=== PATIENT | female | born 1975 | race Two or more races ===

== ENCOUNTER 2016-09-20 23:43 | Emergency (ER) | payer SELFPAY ==
[2016-09-21 01:01] LABS: ALANINE AMINOTRANSFERASE 29 U/L (9-52); ALBUMIN 4.4 g/dL (3.5-5.0); ALKALINE PHOSPHATASE 123 U/L (38-126); ANION GAP 15 (5-19); ASPARTATE AMINO TRANSFERASE 16 U/L (14-36); BILIRUBIN,TOTAL 0.6 mg/dL (0.2-1.3); BLOOD UREA NITROGEN 14 mg/dL (7-20); CALCIUM 10.6 mg/dL (8.4-10.2); CARBON DIOXIDE 24 mmol/L (22-30); CHLORIDE 101 mmol/L (98-107); CREATININE RESULT 0.53 mg/dL (0.52-1.25); GLUCOSE 362 mg/dL (75-110); POTASSIUM 4.2 mmol/L (3.6-5.0); SODIUM 139.9 mmol/L (137-145); TOTAL PROTEIN 8.5 g/dL (6.3-8.2)
[2016-09-21 01:16] LABS: HEMATOCRIT 51.5 % (36.0-47.0); HEMOGLOBIN 17.7 g/dL (12.0-15.5); HGB HCT DIFFERENCE 1.6; MEAN CORPUSCULAR HEMOGLOBIN 29.6 pg (27.0-33.4); MEAN CORPUSCULAR HGB CONC 34.3 g/dL (32.0-36.0); MEAN CORPUSCULAR VOLUME 86 fl (80-97); RED BLOOD COUNT 5.97 10^6/uL (3.72-5.28); RED CELL DISTRIBUTION WIDTH 12.7 % (11.5-14.0); WHITE BLOOD COUNT 20.2 10^3/uL (4.0-10.5)
[2016-09-21] MEDS ORDERED: CLINDAMYCIN 600 MG/D5W RTU 50 ML IV ONE (01:24)
[2016-09-21] MEDS ORDERED: MORPHINE SULFATE 10 MG/ML INJ IV ONE ×2 (01:24→02:42)
[2016-09-21 01:30] LABS: BASOPHILS % (MANUAL) 0 % (0-2); EOSINOPHILS % (MANUAL) 0 % (0-6); LYMPHOCYTES % (MANUAL) 27 % (13-45); TOTAL CELLS COUNTED 100
[2016-09-21 01:32] LABS: RBC MORPHOLOGY COMMENT NORMO-CYTIC/CHROMIC
--- NOTE | 2016-09-21 02:14 | ER Document Report ---
ED Extremity Problem, Lower - General Chief Complaint: High Blood Sugar Stated Complaint: RIGHT LEG PAIN Time seen by provider: 02:14 Mode of Arrival: Ambulatory Information source: Patient TRAVEL OUTSIDE OF THE [place] IN LAST 30 DAYS: No - HPI Patient complains to provider of: Pain Location: Leg Occurred: Other - 4 days Where: Home Onset/Duration: Gradual Quality of pain: Achy Severity: Moderate Pain Level: 3 Recent injury: No Exacerbated by: Nothing Relieved by: Nothing Notes: Patient is a 40-year-old female who presents to the emergency room complaining of tender erythematous patch to the lateral portion of her right lower leg that' s been worsening over the past 4 days, she denies any injury, no history of similar symptoms previously, no fever, patient reports that she is a diabetic, has not been on her metformin for greater than one year, has not seen a doctor in quite some time as well, she is a smoker - Related Data Allergies/Adverse Reactions: No Known Allergies Allergy (Verified 09/21/16 00:02) Past Medical History - General Information source: Patient - Social History Smoking Status: Current Every Day Smoker Chew tobacco use (# tins/day): No Frequency of alcohol use: None Drug Abuse: None Family History: Reviewed & Not Pertinent Endocrine Medical History: Reports: Hx Diabetes Mellitus Type 2 Renal/ Medical History: Denies: Hx Peritoneal Dialysis - Immunizations Hx Diphtheria, Pertussis, Tetanus Vaccination: Yes Review of Systems - Review of Systems Constitutional: No symptoms reported EENT: No symptoms reported Cardiovascular: No symptoms reported Respiratory: No symptoms reported Gastrointestinal: No symptoms reported Genitourinary: No symptoms reported Female Genitourinary: No symptoms reported Musculoskeletal: No symptoms reported Skin: See HPI Hematologic/Lymphatic: No symptoms reported Neurological/Psychological: No symptoms reported -: Yes All other systems reviewed and negative Physical Exam - Vital signs Vitals: Temp Pulse Resp BP Pulse Ox 98.9 F 94 16 169/100 H 97 09/20/16 23:48 09/20/16 23:48 09/20/16 23:48 09/20/16 23:48 09/20/16 23:48 Interpretation: Normal - General General appearance: Appears well, Alert - HEENT Head: Normocephalic, Atraumatic Eyes: Normal Pupils: PERRL - Respiratory Respiratory status: No respiratory distress Chest status: Nontender Breath sounds: Normal Chest palpation: Normal - Cardiovascular Rhythm: Regular Heart sounds: Normal auscultation Murmur: No - Abdominal Inspection: Normal Distension: No distension Bowel sounds: Normal Tenderness: Nontender Organomegaly: No organomegaly - Back Back: Normal, Nontender - Extremities General upper extremity: Normal inspection, Nontender, Normal color, Normal ROM , Normal temperature General lower extremity: Normal ROM, Normal weight bearing. No: Huan's sign Calf: Nontender, Other - Patient has a 8 x 4 cm area of erythema with increased warmth and tenderness to the lateral portion of the right lower leg, distal sensation and motor is intact with 2+ DP pulses - Neurological Neuro grossly intact: Yes Cognition: Normal Orientation: AAOx4 [place] Coma Scale Eye Opening: Spontaneous [place] Coma Scale Verbal: Oriented [place] Coma Scale Motor: Obeys Commands [place] Coma Scale Total: 15 Speech: Normal Motor strength normal: LUE, RUE, LLE, RLE Sensory: Normal - Psychological Associated symptoms: Normal affect, Normal mood - Skin Skin Temperature: Warm Skin Moisture: Dry Skin Color: Normal Course - Re-evaluation Re-evalutation: 09/21/16 03:48 Physical exam findings consistent with cellulitis, patient is noted to have markedly leukocytosis, as well as an elevated blood sugar consistent with her history of diabetes, states that she's been on metformin in the past, but has not been for at least a year, patient was provided with antibiotics, pain medication and a prescription for metformin, advised to follow-up with a primary care provider or return to the emergency room if symptoms worsen or fail to improve over the next 2-3 days, patient acknowledges understanding and agreement with this plan - Vital Signs Vital signs: Temp Pulse Resp BP Pulse Ox 98.6 F 89 16 130/74 H 98 09/21/16 03:32 09/21/16 03:32 09/21/16 03:32 09/21/16 03:32 09/21/16 03:32 - Laboratory Result Diagrams: 09/21/16 00:33 09/21/16 00:33 Laboratory results interpreted by me: 09/21/16 09/21/16 09/21/16 00:23 00:33 00:33 WBC 20.2 H RBC 5.97 H Hgb 17.7 H Hct 51.5 H Abs Neuts (Manual) 13.3 H Abs Lymphs (Manual) 5.7 H Glucose 362 H POC Glucose 338 H Calcium 10.6 H Total Protein 8.5 H Discharge - Discharge Clinical Impression: Cellulitis of right lower extremity Diabetes Qualifiers: Diabetes mellitus type: type 2 Diabetes mellitus complication status: with skin complications Diabetes mellitus complication detail: with other skin complication Diabetes mellitus care home insulin use: without care home use Qualified Code(s): E11.628 - Type 2 diabetes mellitus with other skin complications Condition: Stable Disposition: HOME, SELF-CARE Instructions: Diabetes (OM), Control of Diabetes During Illness (OM), Cellulitis (OM) Additional Instructions: Follow up with your primary care provider in one to 2 days. Return to the emergency room immediately if symptoms worsen or any additional concerns. Prescriptions: Clindamycin HCl [Cleocin 150 mg Capsule] 450 mg PO Q6 10 Days Hydrocodone/Acetaminophen [Hydrocodon-Acetaminophen 5-325] 1 each PO Q6 #20 tablet Metformin HCl [Glucophage] 500 mg PO BID #60 tablet Forms: Return to Work
[2016-09-21] MEDS ORDERED: INSULIN REG, HUMAN 100 UNIT/ML 3 ML VIAL (PYX) SUBCUT ONE (02:42)
[2016-09-21] MEDS ORDERED: HYDROCODONE/ACETAMINOPHEN 5-325 MG 6 TAB/DSPK PO PRN (02:53)
[2016-09-21 03:32] VITALS: BP 130/74
== END 2016-09-21 03:38 | disposition home or self-care (01) ==
LOC: ER 23:43
DX: L03.115 Cellulitis of right lower limb (principal); E11.628 Type 2 diabetes mellitus with other skin complications; F17.200 Nicotine dependence, unspecified, uncomplicated
CPT/HCPCS: 96376; 99283; 96375; 96365; 36415; 82962; 85025; 80053; J2270; J1815

== ENCOUNTER 2016-09-22 21:55 | Inpatient (IN) | payer SELFPAY ==
[2016-09-23] MEDS ORDERED: NORMAL SALINE 1000 ML 1,000 ML IV ONE (00:04)
[2016-09-23] MEDS ORDERED: VANCOMYCIN HCL INJ 1000 MG VIAL IV ONE (00:04)
[2016-09-23] MEDS ORDERED: HYDROMORPHONE HCL INJ/PF 2 MG/ML AMPULE IV ONE ×2 (00:04→03:49)
[2016-09-23] MEDS ORDERED: CEFTRIAXONE INJ 1000 MG VIAL IV ONE (00:04)
--- NOTE | 2016-09-23 00:07 | ER Document Report ---
ED General - General Chief Complaint: Skin Problem Stated Complaint: POSSIBLE CELLULITIS Notes: Patient is a 40-year-old female presents with complaint of a virus in her right leg. She was here 2 days ago and placed on clindamycin. She was also placed on the metformin due to a history of diabetes. Today the redness has spread and the pain has increased in her leg. She has been taking medications as prescribed. Low-grade fevers at home. No vomiting. Patient has never had a problem with cellulitis in the past. TRAVEL OUTSIDE OF THE [place] IN LAST 30 DAYS: No - Related Data Allergies/Adverse Reactions: No Known Allergies Allergy (Verified 09/21/16 00:02) Past Medical History - Social History Smoking Status: Current Every Day Smoker Chew tobacco use (# tins/day): No Frequency of alcohol use: None Drug Abuse: None Family History: Reviewed & Not Pertinent Patient has suicidal ideation: No Patient has homicidal ideation: No Endocrine Medical History: Reports: Hx Diabetes Mellitus Type 2 Renal/ Medical History: Denies: Hx Peritoneal Dialysis - Immunizations Hx Diphtheria, Pertussis, Tetanus Vaccination: Yes Review of Systems - Review of Systems Notes: My Normal Review Basic REVIEW OF SYSTEMS: CONSTITUTIONAL : Denies fever, chills, or sweats. Denies recent illness. EENT: Denies eye, ear, throat, or mouth pain or symptoms. Denies nasal or sinus congestion. RESPIRATORY: Denies cough, cold, or chest congestion. Denies shortness of breath, difficulty breathing, or wheezing. GASTROINTESTINAL: Denies abdominal pain. Denies nausea, vomiting, or diarrhea. Denies constipation. Last BM: GENITOURINARY: Denies difficulty urinating, painful urination, burning, frequency, or blood in urine. MUSCULOSKELETAL: Denies neck or back pain or joint pain or swelling. SKIN: Cellulitis right lower extremity. NEUROLOGICAL: Denies altered mental status or loss of consciousness. Denies headache. Denies weakness or paralysis or loss of use of either side. Denies problems with gait or speech. Denies sensory or motor loss. ALL OTHER SYSTEMS REVIEWED AND NEGATIVE. Physical Exam - Vital signs Vitals: Temp Pulse Resp BP Pulse Ox 100.0 F 98 16 156/89 H 97 09/22/16 21:59 09/22/16 21:59 09/22/16 21:59 09/22/16 21:59 09/22/16 21:59 - Notes Notes: General Appearance: Well nourished, alert, cooperative, no acute distress, moderate obvious discomfort. Vitals: reviewed, See vital signs table. Head: no swelling or tenderness to the head Eyes: PERRL, EOMI, Conjuctiva clear Mouth: No decreasd moisture Lungs: No wheezing, No rales, No rhonci, No accessory muscle use, good air exchange bilaterally. Heart: Normal rate, Regular rythm, No murmur, no rub Extremities: strength 5/5 in all extremities, good pulses in all extremities, area cellulitis and redness over the lateral aspect of the right lower extremity. Area has extended beyond the demarcated margins were marked 2 days ago. There is no fluctuance. Area is tender to palpation. Skin: warm, dry, appropriate color, no rash Neuro: speech clear, oriented x 3, normal affect, responds appropriately to questions. Course - Vital Signs Vital signs: Temp Pulse Resp BP Pulse Ox 100.0 F 98 22 H 133/81 H 99 09/22/16 21:59 09/22/16 21:59 09/23/16 02:01 09/23/16 02:01 09/23/16 02:01 - Laboratory Result Diagrams: 09/23/16 00:43 09/23/16 00:43 Laboratory results interpreted by me: 09/23/16 09/23/16 00:43 00:43 WBC 18.5 H RBC 5.37 H Hgb 15.8 H Absolute Neutrophils 12.2 H Absolute Lymphocytes 4.9 H Creatinine 0.51 L Glucose 265 H - Transfer of Care Notes: 09/23/16 03:45 Due to patient's fever, leukocytosis, and worsening cellulitis despite outpatient therapy if felt appropriate to admit her for further treatment of her cellulitis. I've given her Vancomycin and Rocephin. I did speak with the hospitalist who agrees in that the patient. Discharge - Discharge Clinical Impression: Cellulitis of right lower extremity, Hyperglycemia Condition: Stable Disposition: ADMITTED OBSERVATION Admitting Provider: Hospitalist Unit Admitted: Telemetry
[2016-09-23 01:09] LABS: ABSOLUTE BASOPHILS # (AUTO) 0.1 10^3/uL (0.0-0.2); ABSOLUTE EOSINOPHILS # (AUTO) 0.3 10^3/uL (0.0-0.6); ABSOLUTE LYMPHOCYTES (AUTO) 4.9 10^3/uL (0.5-4.7); ABSOLUTE MONOCYTES (AUTO) 1.1 10^3/uL (0.1-1.4); ABSOLUTE NEUT (AUTO) 12.2 10^3/uL (1.7-8.2); BASOPHILS % (AUTO) 0.4 % (0-2); EOSINOPHILS % (AUTO) 1.5 % (0-6); HEMATOCRIT 46.2 % (36.0-47.0); HEMOGLOBIN 15.8 g/dL (12.0-15.5); HGB HCT DIFFERENCE 1.2; LYMPHOCYTES % (AUTO) 26.3 % (13-45); MEAN CORPUSCULAR HEMOGLOBIN 29.5 pg (27.0-33.4); MEAN CORPUSCULAR HGB CONC 34.2 g/dL (32.0-36.0); MEAN CORPUSCULAR VOLUME 86 fl (80-97); MONOCYTES % (AUTO) 5.8 % (3-13); RED BLOOD COUNT 5.37 10^6/uL (3.72-5.28); RED CELL DISTRIBUTION WIDTH 12.8 % (11.5-14.0); WHITE BLOOD COUNT 18.5 10^3/uL (4.0-10.5)
[2016-09-23 01:25] LABS: ANION GAP 16 (5-19); BLOOD UREA NITROGEN 14 mg/dL (7-20); CALCIUM 9.6 mg/dL (8.4-10.2); CARBON DIOXIDE 23 mmol/L (22-30); CHLORIDE 102 mmol/L (98-107); CREATININE RESULT 0.51 mg/dL (0.52-1.25); GLUCOSE 265 mg/dL (75-110)
[2016-09-23 01:43] LABS: POTASSIUM 4.2 mmol/L (3.6-5.0)
[2016-09-23] MEDS ORDERED: INSULIN REG, HUMAN 100 UNIT/ML 3 ML VIAL (PYX) SUBCUT ONE (01:53)
[2016-09-23] MEDS ORDERED: DEXTROSE 50%-WATER 25 GM/50 ML DISP.SYRIN IV PRN ×2 (08:03)
[2016-09-23] MEDS ORDERED: GLUCAGON,HUMAN RECOMB 1 MG INJ IM PRN (08:03)
[2016-09-23] MEDS ORDERED: DEXTROSE 40% GEL 15 GM TUBE PO PRN ×2 (08:03)
[2016-09-23] MEDS ORDERED: ACETAMINOPHEN 325 MG TABLET PO PRN ×2 (08:04→14:40)
[2016-09-23] MEDS ORDERED: OXYCODONE HCL IR 5 MG TABLET PO PRN (08:08)
[2016-09-23] MEDS ORDERED: PROMETHAZINE HCL INJ 25 MG/1 ML VIAL IV PRN (08:09)
[2016-09-23] MEDS ORDERED: VANCOMYCIN HCL 0 MG in DEXTROSE 5%-WATER 250 ML IV NR (08:15)
--- NOTE | 2016-09-23 09:24 | PDOC H&P ---
History of Present Illness Admission Date/PCP: 09/23/16 04:10 PCP None Patient complains of: rt leg infection History of Present Illness: NISHA SWAIN is a 40 year old female, with underlying type II diabetes mellitus, recently started on metformin for same, and mild chronic constipation, who presents to the emergency room for the second time in 48-72 hours for evaluation of above complaint. 4-5 days ago, she noted a small red bump on the lateral aspect of her right calf. This has gradually increased in size with associated burning cramping discomfort, which worsens with ambulation or any contact with the area of involvement. Was seen in the emergency room 2 days ago and placed on clindamycin; also started on metformin at that time due to history of diabetes. Despite taking the clindamycin as prescribed, however, the area of redness has increased, along with the pain. Subjective low-grade fever at home. No vomiting. No prior such episodes. Denies any trauma to the site. No history of MRSA. Patient has been discussed with emergency room physician who evaluated the patient. . Laboratory results are listed in [facility] [facility] and are reviewed. Social history/personal habits: . No children. 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 Half-pack of cigarettes per day. No alcohol or illicit drug use. Allergies/adverse reactions NKDA. Home medications are reviewed by discussion with patient and are to be reconciled by pharmacy picking technician in [employer] [employer] Home medications initially autopopulated into [facility] may not accurately reflect patient's true medications, dosages, and/or frequencies. REVIEW OF SYSTEMS: Constitutional: See history and present illness. Eyes: No current vision complaints. ENT: No swallowing problems or complaints. No hearing problems or complaints. Pulmonary: No current complaints. Cardiovascular: No current complaints, including chest pain. Gastrointestinal: No current complaints, including nausea or vomiting. Skin: See history and present illness. Hematologic: No unusual easy bruising or bleeding. Neurologic: No current complaints, including numbness or tingling. Musculoskeletal: No current complaints, including painful joints. Psychiatric: No current complaints, including anxiety or depression. Endocrine: No current complaints, including polyuria. Genitourinary: No current complaints, including dysuria. PHYSICAL EXAMINATION: 5 feet 4 inches tall. 62.6 kg. BMI 23.7 kg/m. Temperature 100.0 earlier; skin feels normothermic at present. Blood pressure 116/80. Pulse 78 and regular. 97% saturation on room air. Respirations are 12 and unlabored. Thin otherwise well-developed female, who appears approximately her stated age. Pleasant awake alert and cooperative. Appears not to feel very well, primarily due to pain in her right calf region. Mildly anxious, but without agitation. is present at her side; patient approves. Female emergency room nurse Barron is present. Skin is warm and dry. No grossly obvious evidence of rash in areas of skin examined. No subcutaneous nodules palpated. Examination of the lateral aspect of her right calf reveals an area of inflammation, warmth, and tenderness involving the great majority of the lateral aspect of the calf. No crepitus fluctuance or expressible discharge. No specific skin entrance site. ENT: Hearing grossly normal to normal conversation. Tongue midline on protrusion pink and slightly moist. Eyes: No scleral icterus. Pupils equal and reactive to light at 4 mm. [place] conjunctivae. Neck is supple and nontender to gentle active range of motion and palpation. Midline trachea. No palpable thyroid nodule mass enlargement or tenderness. Lymphatic: No palpable cervical or clavicular nodes. Neck and lymphatic exams limited by patient body habitus. Psychiatric: Reasonable insight into acute and chronic medical issues. Oriented to time location and why here. Lungs: Auscultation reveals clear and equal breath sounds bilaterally. No use of accessory respiratory muscles. Cardiovascular: Heart regular rate and rhythm, without gallop murmur or rub. No carotid or abdominal aortic bruits. No ankle or pedal edema. palpable dorsalis pedis pulses. Abdomen: soft, , slightly distended nontender with positive bowel sounds. Unable to adequately evaluate abdomen for masses or organomegaly due to distention. Extremities: Feet are warm and dry. No left calf tenderness to compression. No grossly obvious visual evidence of left calf swelling; very mild soft tissue swelling in the area of inflammation of the right calf.. Gentle manipulation of left lower extremity fails to reveal any obvious evidence of injury or instability to knee hip or ankle. Not attempted on the right due to her discomfort. Neurologic: Moves upper extremities grossly normally. Patellar reflexes absent. Absent Babinski. Light touch is intact at feet. Dorsiflexion and plantarflexion of feet 5 / 5 and symmetric. Past Medical History Cardiac Medical History: Denies: Congestive Heart Failure, DVT, Myocardial Infarction, Hyperlipidema, Hypertension, Pulmonary Embolism Pulmonary Medical History: Denies: Asthma, Chronic Obstructive Pulmonary Disease (COPD), Sleep Apnea EENT Medical History: Denies: Eyes, Ears, Throat Neurological Medical History: Denies: Hemorrhagic CVA, Ischemic CVA, Seizures Endocrine Medical History: Reports: Diabetes Mellitus Type 2 Denies: Hyperthyroidism, Hypothyroidism Renal/ Medical History: Reports: None GI Medical History: Reports: Other - Mild chronic constipation Denies: Cirrhosis, Hepatitis, Peptic Ulcer Disease Musculoskeltal Medical History: Reports: None Skin Medical History: Reports: None Psychiatric Medical History: Reports: Tobacco Dependency Denies: Alcohol Dependency, Depression, General Anxiety Disorder, Substance Abuse Hematology: Reports: None Infectious Medical History: Denies: Clostridium Difficile, Hepatitis B, Hepatitis C, Methicillin- Resistant Staph Aureus Past Surgical History Past Surgical History: Reports: Other - Excision of benign cervical polyp Social History Information Source: Patient, Emergency Med Personnel, [facility] Records Lives with: Spouse/Significant other Smoking Status: Current Every Day Smoker Frequency of Alcohol Use: None Drugs: None - Advance Directive Resuscitation Status: Full Code Surrogate healthcare decision maker:: Mother Family History Family History: Reviewed & Not Pertinent, DM Parental Family History Reviewed: Yes Children Family History Reviewed: NA Sibling(s) Family History Reviewed.: Yes Medication/Allergy Home Medications: RX: Metformin HCl [Glucophage] 500 mg PO BID #60 tablet 09/21/16 RX: Clindamycin HCl 300 mg PO Q8H #21 capsule 09/25/16 Oxycodone HCl/Acetaminophen [Percocet 5-325 mg Tablet] 1 tab PO Q6HP PRN #10 tablet 09/29/16 Rivaroxaban [Xarelto] 15 mg PO BID 21 Days 09/29/16 Allergies/Adverse Reactions: No Known Allergies Allergy (Verified 09/29/16 13:59) Physical Exam Vital Signs: Temp Pulse Resp BP Pulse Ox 100.0 F 98 17 130/86 H 97 09/22/16 21:59 09/22/16 21:59 09/23/16 07:01 09/23/16 07:01 09/23/16 07:01 Intake & Output 09/22/16 09/23/16 09/24/16 00:59 00:59 00:59 Intake Total 1350 Balance 1350 Assessment & Plan - Diagnosis (1) Tobacco dependency Is this a current diagnosis for this admission?: YesPlan: . When necessary Nicotine patch. (2) DVT prophylaxis Is this a current diagnosis for this admission?: YesPlan: SCD, left lower extremity only. Subcutaneous Lovenox. (3) Cellulitis of right lower extremity Is this a current diagnosis for this admission?: YesPlan: Intravenous vancomycin and Ancef. Pharmacy to assist with vancomycin dosing. Bed rest other than meals and bathroom. Bed in 20 Trendelenburg. I have strongly encouraged patient not to get out of bed without notifying staff , to avoid a fall with injury. Impression and plans were discussed with patient, and , both of whom concur. Time spent in evaluation and management of patient: 58 minutes. (4) Diabetes mellitus type 2 in nonobese Is this a current diagnosis for this admission?: YesPlan: Diabetic cardiac diet. Accu-Cheks with appropriate sliding scale coverage.Resume home medications as appropriate once these have been determined and reviewed. - Inpatient Certification Based on my medical assessment, after consideration of the patient's comorbidities, presenting symptoms, or acuity I expect that the services needed warrant INPATIENT care.: Yes I certify that my determination is in accordance with my understanding of Medicare's requirements for reasonable and necessary INPATIENT services [42 CFR 412.3e].: Yes Medical Necessity: Failure to Improve With Outpatient Therapy, Need Close Monitoring Due to Risk of Patient Decompensation, Need for IV Antibiotics, Risk of Complication if Not Cared For in Hospital Post Hospital Care: D/C or Transfer Summary
[2016-09-23] MEDS: INSULIN LISPRO 100 UNIT/ML 3 ML VIAL SUBCUT PRN ×4 (09:40→21:34)
[2016-09-23] MEDS ORDERED: CEFAZOLIN 1 GM/D5W RTU 1 GM/50 ML RTUPB IV SCH (10:00)
[2016-09-23] MEDS: NICOTINE 14 MG/24 HR PATCH.TD24 TD PRN (10:15)
[2016-09-23] MEDS ORDERED: TRAMADOL HCL 50 MG TABLET PO PRN (14:40)
[2016-09-23] MEDS ORDERED: KETOROLAC TROMETHAMINE INJ/PF 30 MG/1 ML SDV IV ONE (15:00)
[2016-09-23] MEDS ORDERED: CLINDAMYCIN 900 MG/D5W RTU 50 ML IV ONE (15:30)
--- NOTE | 2016-09-23 17:37 | PDOC PROGRESS REPORT ---
Subjective Progress Note for:: 09/23/16 Subjective:: The patient was seen earlier today on rounds. The patient admits to ongoing calf pain. The patient is tearful at times stating the pain is excruciating. The patient was noted to be texting during the interview. The patient denies any nausea, vomiting, diarrhea, shortness of breath, dizziness, chest pain, heart palpitations, fevers, or chills. The patient has remained afebrile. Blood pressures have been in a good range. When prompted the patient voices no other concerns at this time. Review of systems: The rest of the review of systems is negative. Physical Exam Vital Signs: Temp Pulse Resp BP Pulse Ox 98 F 75 20 169/94 H 100 09/23/16 14:20 09/23/16 14:20 09/23/16 14:20 09/23/16 14:20 09/23/16 14:20 Intake & Output 09/21/16 09/22/16 09/23/16 23:59 23:59 23:59 Intake Total 50 Balance 50 Weight 64.5 kg General appearance: PRESENT: no acute distress, well-developed, well-nourished Head exam: PRESENT: atraumatic, normocephalic Eye exam: PRESENT: conjunctiva pink, EOMI, PERRLA. ABSENT: scleral icterus Ear exam: PRESENT: normal external ear exam Mouth exam: PRESENT: moist, tongue midline Neck exam: ABSENT: carotid bruit, JVD, lymphadenopathy, thyromegaly Respiratory exam: PRESENT: clear to auscultation makenzie. ABSENT: rales, rhonchi, wheezes Cardiovascular exam: PRESENT: RRR. ABSENT: diastolic murmur, rubs, systolic murmur Pulses: PRESENT: normal dorsalis pedis pul Vascular exam: PRESENT: normal capillary refill GI/Abdominal exam: PRESENT: normal bowel sounds, soft. ABSENT: distended, guarding, mass, organolmegaly, rebound, tenderness Rectal exam: PRESENT: deferred Extremities exam: PRESENT: calf tenderness - Redness and cellulitis appears to have receded from previous markings.. ABSENT: clubbing, pedal edema Neurological exam: PRESENT: alert, awake, oriented to person, oriented to place , oriented to time, oriented to situation, CN II-XII grossly intact. ABSENT: motor sensory deficit Psychiatric exam: PRESENT: appropriate affect, normal mood. ABSENT: homicidal ideation, suicidal ideation Skin exam: PRESENT: dry, intact, warm. ABSENT: cyanosis, rash Results Laboratory Results: Labs- Last Values WBC 18.5 10^3/uL (4.0-10.5) H 09/23/16 00:43 RBC 5.37 10^6/uL (3.72-5.28) H 09/23/16 00:43 Hgb 15.8 g/dL (12.0-15.5) H 09/23/16 00:43 Hct 46.2 % (36.0-47.0) 09/23/16 00:43 MCV 86 fl (80-97) 09/23/16 00:43 MCH 29.5 pg (27.0-33.4) 09/23/16 00:43 MCHC 34.2 g/dL (32.0-36.0) 09/23/16 00:43 RDW 12.8 % (11.5-14.0) 09/23/16 00:43 Plt Count 300 10^3/uL (150-450) 09/23/16 00:43 Seg Neutrophils % 66.0 % (42-78) 09/23/16 00:43 Lymphocytes % 26.3 % (13-45) 09/23/16 00:43 Monocytes % 5.8 % (3-13) 09/23/16 00:43 Eosinophils % 1.5 % (0-6) 09/23/16 00:43 Basophils % 0.4 % (0-2) 09/23/16 00:43 Absolute Neutrophils 12.2 10^3/uL (1.7-8.2) H 09/23/16 00:43 Absolute Lymphocytes 4.9 10^3/uL (0.5-4.7) H 09/23/16 00:43 Absolute Monocytes 1.1 10^3/uL (0.1-1.4) 09/23/16 00:43 Absolute Eosinophils 0.3 10^3/uL (0.0-0.6) 09/23/16 00:43 Absolute Basophils 0.1 10^3/uL (0.0-0.2) 09/23/16 00:43 Sodium 141.0 mmol/L (137-145) 09/23/16 00:43 Potassium 4.2 mmol/L (3.6-5.0) 09/23/16 00:43 Chloride 102 mmol/L (98-107) 09/23/16 00:43 Carbon Dioxide 23 mmol/L (22-30) 09/23/16 00:43 Anion Gap 16 (5-19) 09/23/16 00:43 BUN 14 mg/dL (7-20) 09/23/16 00:43 Creatinine 0.51 mg/dL (0.52-1.25) L 09/23/16 00:43 Est GFR ( Amer) > 60 (>60) 09/23/16 00:43 Est GFR (Non-Af Amer) > 60 (>60) 09/23/16 00:43 Glucose 265 mg/dL (75-110) H 09/23/16 00:43 POC Glucose 180 mg/dL (70-110) H 09/23/16 16:33 Calcium 9.6 mg/dL (8.4-10.2) 09/23/16 00:43 Serum HCG, Qual NEGATIVE (NEGATIVE) 09/23/16 00:43 Assessment & Plan - Diagnosis (1) Cellulitis of right lower extremity Is this a current diagnosis for this admission?: YesPlan: Will transition antibiotic coverage to clindamycin will add probiotic and follow. The patient's creatinine is in a normal range will scheduled Toradol for now to aid with inflammation. (2) Diabetes mellitus type 2 in nonobese Is this a current diagnosis for this admission?: YesPlan: My home meds as well as signs go coverage (3) Tobacco dependency Is this a current diagnosis for this admission?: YesPlan: Spent 3 minutes discussing smoking cessation education. The patient declines any pharmacological intervention at this time however will add a PRN nicotine patch. (4) DVT prophylaxis Is this a current diagnosis for this admission?: Yes - Time Time Spent with patient: 35 or more minutes Medications reviewed and adjusted accordingly: Yes Anticipated discharge: Home Within: within 24 hours, within 48 hours Disposition: The patient is a full code. Pending patient's symptomatology and diagnostic findings will reevaluate in the a.m.
[2016-09-23] MEDS: METFORMIN HCL 500 MG TABLET PO SCH (17:55)
[2016-09-23] MEDS: LACTOBACILLUS ACIDOPHILUS 250 MG TAB PO SCH (17:55)
[2016-09-23] MEDS: KETOROLAC TROMETHAMINE INJ/PF 30 MG/1 ML SDV IV SCH (21:31)
[2016-09-23] MEDS: CLINDAMYCIN 900 MG/D5W RTU 50 ML IV SCH (21:31)
[2016-09-24] MEDS: KETOROLAC TROMETHAMINE INJ/PF 30 MG/1 ML SDV IV SCH ×4 (03:58→21:25)
[2016-09-24] MEDS: CLINDAMYCIN 900 MG/D5W RTU 50 ML IV SCH ×3 (06:38→21:25)
[2016-09-24 06:51] LABS: MEAN CORPUSCULAR VOLUME 85 fl (80-97)
[2016-09-24 07:00] LABS: ABSOLUTE BASOPHILS # (AUTO) 0.1 10^3/uL (0.0-0.2); ABSOLUTE EOSINOPHILS # (AUTO) 0.2 10^3/uL (0.0-0.6); ABSOLUTE MONOCYTES (AUTO) 0.9 10^3/uL (0.1-1.4); BASOPHILS % (AUTO) 0.7 % (0-2); EOSINOPHILS % (AUTO) 1.2 % (0-6); HEMATOCRIT 39.9 % (36.0-47.0); HGB HCT DIFFERENCE 0.3; LYMPHOCYTES % (AUTO) 26.3 % (13-45); MEAN CORPUSCULAR HEMOGLOBIN 28.7 pg (27.0-33.4); MEAN CORPUSCULAR HGB CONC 33.7 g/dL (32.0-36.0); MONOCYTES % (AUTO) 6.2 % (3-13); RED BLOOD COUNT 4.69 10^6/uL (3.72-5.28); RED CELL DISTRIBUTION WIDTH 12.5 % (11.5-14.0); SEGMENTED NEUTROPHILS % (AUTO) 65.6 % (42-78); WHITE BLOOD COUNT 15.3 10^3/uL (4.0-10.5)
[2016-09-24 07:05] LABS: HEMOGLOBIN 13.4 g/dL (12.0-15.5)
[2016-09-24] MEDS: ENOXAPARIN SODIUM INJ 40 MG/0.4 ML DISP.SYRIN SUBCUT SCH (08:00)
[2016-09-24] MEDS: METFORMIN HCL 500 MG TABLET PO SCH ×2 (09:52→17:51)
[2016-09-24] MEDS: LACTOBACILLUS ACIDOPHILUS 250 MG TAB PO SCH ×2 (09:52→17:51)
[2016-09-24] MEDS: INSULIN LISPRO 100 UNIT/ML 3 ML VIAL SUBCUT PRN (11:54)
[2016-09-24] MEDS: NICOTINE 14 MG/24 HR PATCH.TD24 TD PRN (11:58)
--- NOTE | 2016-09-24 13:46 | PDOC PROGRESS REPORT ---
Subjective Progress Note for:: 09/24/16 Subjective:: The patient was seen earlier today on rounds. The patient admits to ongoing calf pain. The patient is tearful at times but it overall is much improved. The patient denies any nausea, vomiting, diarrhea, shortness of breath, dizziness, chest pain, heart palpitations, fevers, or chills. The patient has remained afebrile. Blood pressures have been in a good range. When prompted the patient voices no other concerns at this time. Review of systems: The rest of the review of systems is negative. Physical Exam Vital Signs: Temp Pulse Resp BP Pulse Ox 98.8 F 76 16 128/85 H 98 09/24/16 12:49 09/24/16 12:49 09/24/16 12:49 09/24/16 12:49 09/24/16 12:49 Intake & Output 09/22/16 09/23/16 09/24/16 23:59 23:59 23:59 Intake Total 130 160 Balance 130 160 Weight 64.5 kg General appearance: PRESENT: no acute distress, well-developed, well-nourished Head exam: PRESENT: atraumatic, normocephalic Eye exam: PRESENT: conjunctiva pink, EOMI, PERRLA. ABSENT: scleral icterus Ear exam: PRESENT: normal external ear exam Mouth exam: PRESENT: moist, tongue midline Neck exam: ABSENT: carotid bruit, JVD, lymphadenopathy, thyromegaly Respiratory exam: PRESENT: clear to auscultation makenzie. ABSENT: rales, rhonchi, wheezes Cardiovascular exam: PRESENT: RRR. ABSENT: diastolic murmur, rubs, systolic murmur Pulses: PRESENT: normal dorsalis pedis pul Vascular exam: PRESENT: normal capillary refill GI/Abdominal exam: PRESENT: normal bowel sounds, soft. ABSENT: distended, guarding, mass, organolmegaly, rebound, tenderness Rectal exam: PRESENT: deferred Extremities exam: PRESENT: calf tenderness - Redness and cellulitis appears to have receded from previous markings and from yesterday. ABSENT: clubbing, pedal edema Neurological exam: PRESENT: alert, awake, oriented to person, oriented to place , oriented to time, oriented to situation, CN II-XII grossly intact. ABSENT: motor sensory deficit Psychiatric exam: PRESENT: appropriate affect, normal mood. ABSENT: homicidal ideation, suicidal ideation Skin exam: PRESENT: dry, intact, warm. ABSENT: cyanosis, rash Results Laboratory Results: 09/24/16 06:07 09/24/16 09/24/16 04:17 06:07 WBC Cancelled 15.3 H RBC Cancelled 4.69 Hgb Cancelled 13.4 D Hct Cancelled 39.9 MCV Cancelled 85 MCH Cancelled 28.7 MCHC Cancelled 33.7 RDW Cancelled 12.5 Plt Count Cancelled 265 Seg Neutrophils % Cancelled 65.6 Lymphocytes % Cancelled 26.3 Monocytes % Cancelled 6.2 Eosinophils % Cancelled 1.2 Basophils % Cancelled 0.7 Absolute Neutrophils Cancelled 10.0 H Absolute Lymphocytes Cancelled 4.0 Absolute Monocytes Cancelled 0.9 Absolute Eosinophils Cancelled 0.2 Absolute Basophils Cancelled 0.1 Assessment & Plan - Diagnosis (1) Cellulitis of right lower extremity Is this a current diagnosis for this admission?: YesPlan: Will continue antibiotic coverage to clindamycin will add probiotic and follow. The patient's creatinine is in a normal range continue scheduled Toradol for now to aid with inflammation. (2) Diabetes mellitus type 2 in nonobese Is this a current diagnosis for this admission?: YesPlan: Home medications and sliding scale coverage (3) Tobacco dependency Is this a current diagnosis for this admission?: YesPlan: PRN nicotine patch. (4) DVT prophylaxis Is this a current diagnosis for this admission?: Yes - Time Time Spent with patient: 25-34 minutes Medications reviewed and adjusted accordingly: Yes Anticipated discharge: Home Within: within 24 hours
[2016-09-25] MEDS: KETOROLAC TROMETHAMINE INJ/PF 30 MG/1 ML SDV IV SCH ×2 (02:18→08:07)
[2016-09-25] MEDS: CLINDAMYCIN 900 MG/D5W RTU 50 ML IV SCH ×2 (05:40→13:37)
[2016-09-25] MEDS: INSULIN LISPRO 100 UNIT/ML 3 ML VIAL SUBCUT PRN ×2 (05:59→13:34)
[2016-09-25] MEDS: ENOXAPARIN SODIUM INJ 40 MG/0.4 ML DISP.SYRIN SUBCUT SCH (07:56)
[2016-09-25] MEDS: LACTOBACILLUS ACIDOPHILUS 250 MG TAB PO SCH (09:34)
[2016-09-25] MEDS: METFORMIN HCL 500 MG TABLET PO SCH (09:34)
[2016-09-25 12:09] VITALS: BP 140/85
--- NOTE | 2016-09-25 17:18 | PDOC DISCHARGE SUMMARY ---
General - Admit/Disc Date/PCP Admission Date/Primary Care Provider: 09/23/16 08:04 [facility] Discharge Date: 09/25/16 - Discharge Diagnosis (1) Cellulitis of right lower extremity Is this a current diagnosis for this admission?: Yes (2) Diabetes mellitus type 2 in nonobese Is this a current diagnosis for this admission?: Yes (3) Tobacco dependency Is this a current diagnosis for this admission?: Yes (4) DVT prophylaxis Is this a current diagnosis for this admission?: Yes - Additional Information Resuscitation Status: Full Code Discharge Diet: As Tolerated, Regular Discharge Activity: Balance Activity w/Rest, Keep Legs Elevated, Slowly Increase Activity Home Medications: Metformin HCl [Glucophage] 500 mg PO BID #60 tablet 09/21/16 Clindamycin HCl 300 mg PO Q8H #21 capsule 09/25/16 History of Present Illness Patient complains of: Right leg History of Present Illness: NISHA SWAIN is a 40 year old female with underlying type II diabetes mellitus , recently started on metformin for same, and mild chronic constipation, who presents to the emergency room for the second time in 48-72 hours for evaluation of above complaint. 4-5 days ago, she noted a small red bump on the lateral aspect of her right calf. This has gradually increased in size with associated burning cramping discomfort, which worsens with ambulation or any contact with the area of involvement. Was seen in the emergency room 2 days ago and placed on clindamycin; also started on metformin at that time due to history of diabetes. Despite taking the clindamycin as prescribed, however, the area of redness has increased, along with the pain. Subjective low-grade fever at home. No vomiting. No prior such episodes. Denies any trauma to the site. No history of MRSA. Hospital Course Hospital Course: The patient was admitted to continuous telemetry unit. Blood cultures were obtained. Patient was started on broad-spectrum IV antibiotic coverage. Blood cultures revealed no growth. The patient was started on scheduled Toradol for inflammation. The patient had drastic improvement of symptoms. No further fever, white count has improved, and clinical assessment has improved. Patient is ready for discharge. The patient has no known allergies. The patient does have a follow-up appointment with [facility]. Physical Exam Vital Signs: Temp Pulse Resp BP Pulse Ox 98.3 F 65 16 140/85 H 97 09/25/16 13:17 09/25/16 13:17 09/25/16 13:17 09/25/16 13:17 09/25/16 13:17 Intake & Output 09/23/16 09/24/16 09/25/16 23:59 23:59 23:59 Intake Total 130 360 400 Balance 130 360 400 Weight 64.5 kg 66.3 kg General appearance: PRESENT: no acute distress, well-developed, well-nourished Head exam: PRESENT: atraumatic, normocephalic Eye exam: PRESENT: conjunctiva pink, EOMI, PERRLA. ABSENT: scleral icterus Ear exam: PRESENT: normal external ear exam Mouth exam: PRESENT: moist, tongue midline Neck exam: ABSENT: carotid bruit, JVD, lymphadenopathy, thyromegaly Respiratory exam: PRESENT: clear to auscultation makenzie. ABSENT: rales, rhonchi, wheezes Cardiovascular exam: PRESENT: RRR. ABSENT: diastolic murmur, rubs, systolic murmur Pulses: PRESENT: normal dorsalis pedis pul Vascular exam: PRESENT: normal capillary refill GI/Abdominal exam: PRESENT: normal bowel sounds, soft. ABSENT: distended, guarding, mass, organolmegaly, rebound, tenderness Rectal exam: PRESENT: deferred Extremities exam: PRESENT: calf tenderness -nearly resolved. Redness and cellulitis appears to have receded from previous markings and from yesterday. ABSENT: clubbing, pedal edema Neurological exam: PRESENT: alert, awake, oriented to person, oriented to place , oriented to time, oriented to situation, CN II-XII grossly intact. ABSENT: motor sensory deficit Psychiatric exam: PRESENT: appropriate affect, normal mood. ABSENT: homicidal ideation, suicidal ideation Skin exam: PRESENT: dry, intact, warm. ABSENT: cyanosis, rash Results Laboratory Results: Labs- Last Values WBC 15.3 10^3/uL (4.0-10.5) H 09/24/16 06:07 RBC 4.69 10^6/uL (3.72-5.28) 09/24/16 06:07 Hgb 13.4 g/dL (12.0-15.5) D 09/24/16 06:07 Hct 39.9 % (36.0-47.0) 09/24/16 06:07 MCV 85 fl (80-97) 09/24/16 06:07 MCH 28.7 pg (27.0-33.4) 09/24/16 06:07 MCHC 33.7 g/dL (32.0-36.0) 09/24/16 06:07 RDW 12.5 % (11.5-14.0) 09/24/16 06:07 Plt Count 265 10^3/uL (150-450) 09/24/16 06:07 Seg Neutrophils % 65.6 % (42-78) 09/24/16 06:07 Lymphocytes % 26.3 % (13-45) 09/24/16 06:07 Monocytes % 6.2 % (3-13) 09/24/16 06:07 Eosinophils % 1.2 % (0-6) 09/24/16 06:07 Basophils % 0.7 % (0-2) 09/24/16 06:07 Absolute Neutrophils 10.0 10^3/uL (1.7-8.2) H 09/24/16 06:07 Absolute Lymphocytes 4.0 10^3/uL (0.5-4.7) 09/24/16 06:07 Absolute Monocytes 0.9 10^3/uL (0.1-1.4) 09/24/16 06:07 Absolute Eosinophils 0.2 10^3/uL (0.0-0.6) 09/24/16 06:07 Absolute Basophils 0.1 10^3/uL (0.0-0.2) 09/24/16 06:07 Platelet Estimate Cancelled 09/24/16 04:17 Sodium 141.0 mmol/L (137-145) 09/23/16 00:43 Potassium 4.2 mmol/L (3.6-5.0) 09/23/16 00:43 Chloride 102 mmol/L (98-107) 09/23/16 00:43 Carbon Dioxide 23 mmol/L (22-30) 09/23/16 00:43 Anion Gap 16 (5-19) 09/23/16 00:43 BUN 14 mg/dL (7-20) 09/23/16 00:43 Creatinine 0.51 mg/dL (0.52-1.25) L 09/23/16 00:43 Est GFR ( Amer) > 60 (>60) 09/23/16 00:43 Est GFR (Non-Af Amer) > 60 (>60) 09/23/16 00:43 Glucose 265 mg/dL (75-110) H 09/23/16 00:43 POC Glucose 190 mg/dL (70-110) H 09/25/16 11:30 Calcium 9.6 mg/dL (8.4-10.2) 09/23/16 00:43 Serum HCG, Qual NEGATIVE (NEGATIVE) 09/23/16 00:43 Slides for Path Review Cancelled 09/24/16 04:17 09/23/16 10:36 Blood Culture - Preliminary Blood NO GROWTH AFTER 48 HOURS 09/23/16 00:43 Blood Culture - Preliminary Blood NO GROWTH AFTER 48 HOURS Qualifiers PATEINT BEING DISCHARGED WITH ANY OF THE FOLLOWING DIAGNOSIS?: No Plan Time Spent: Less than 30 Minutes
== END 2016-09-25 14:36 | disposition home or self-care (01) | DRG 603 ==
LOC: ER 21:55 → EH 09-23 04:10 → OBSVTOIN 09-23 08:04 → 4S 09-23 13:54
PROVIDERS: ADMIT Family Medicine; ATTEND Family Medicine
DX: L03.115 Cellulitis of right lower limb (principal); E11.65 Type 2 diabetes mellitus with hyperglycemia; K59.00 Constipation, unspecified; F17.210 Nicotine dependence, cigarettes, uncomplicated; Z83.3 Family history of diabetes mellitus
CPT/HCPCS: 36415; 80048; 82962; 84703; 85025; 87040; 96365; 96367; 96375; 96376; 99284; J0690; J0696; J1170; J1650; J1815; J1885; J3370; J3490; J7030

== ENCOUNTER 2016-09-29 13:29 | Emergency (ER) | payer SELFPAY ==
--- NOTE | 2016-09-29 14:03 | ER Document Report ---
ED Medical Screen (RME) - General Stated Complaint: LEG PAIN Notes: Patient sent to the emergency room by primary care physician for DVT of right leg. Had an outpatient scan today. Patient denies chest pain or shortness of breath. Denies recent long distance travel or prolonged sitting. No previous history of DVT. Patient was hospitalized for 2-3 days for IV antibiotics on the because they thought the area was a cellulitis. I have greeted and performed a rapid initial assessment of this patient. A comprehensive ED assessment and evaluation of the patient, analysis of test results and completion of the medical decision making process will be conducted by additional ED providers. TRAVEL OUTSIDE OF THE [place] IN LAST 30 DAYS: No - Related Data Allergies/Adverse Reactions: No Known Allergies Allergy (Verified 09/29/16 13:59) Past Medical History - Past Medical History Cardiac Medical History: Denies: Hx Congestive Heart Failure, Hx DVT, Hx Heart Attack, Hx Hypercholesterolemia, Hx Hypertension, Hx Pulmonary Embolism Pulmonary Medical History: Denies: Hx Asthma, Hx COPD, Hx Sleep Apnea Neurological Medical History: Denies: Hx Seizures Endocrine Medical History: Reports: Hx Diabetes Mellitus Type 2. Denies: Hx Hyperthyroidism, Hx Hypothyroidism Renal/ Medical History: Denies: Hx Peritoneal Dialysis GI Medical History: Denies: Hx Cirrhosis, Hx Hepatitis Psychiatric Medical History: Denies: Hx Depression Infectious Medical History: Denies: Hx C-Diff, Hx Hepatitis, Hx MRSA Past Surgical History: Reports: Other - Excision of benign cervical polyp - Immunizations Hx Diphtheria, Pertussis, Tetanus Vaccination: Yes Physical Exam - Vital signs Vitals: Temp Pulse Resp BP Pulse Ox 98.3 F 80 20 137/87 H 100 09/29/16 13:56 09/29/16 13:56 09/29/16 13:56 09/29/16 13:56 09/29/16 13:56 - Extremities Notes: Firm and tender swollen area right lateral lower leg. Course - Vital Signs Vital signs: Temp Pulse Resp BP Pulse Ox 98.3 F 80 20 137/87 H 100 09/29/16 13:56 09/29/16 13:56 09/29/16 13:56 09/29/16 13:56 09/29/16 13:56
[2016-09-29 14:31] LABS: ABSOLUTE BASOPHILS # (AUTO) 0.1 10^3/uL (0.0-0.2); ABSOLUTE EOSINOPHILS # (AUTO) 0.2 10^3/uL (0.0-0.6); ABSOLUTE LYMPHOCYTES (AUTO) 5.6 10^3/uL (0.5-4.7); ABSOLUTE MONOCYTES (AUTO) 0.9 10^3/uL (0.1-1.4); ABSOLUTE NEUT (AUTO) 7.4 10^3/uL (1.7-8.2); BASOPHILS % (AUTO) 0.9 % (0-2); EOSINOPHILS % (AUTO) 1.7 % (0-6); HEMATOCRIT 45.3 % (36.0-47.0); HEMOGLOBIN 15.7 g/dL (12.0-15.5); HGB HCT DIFFERENCE 1.8; LYMPHOCYTES % (AUTO) 39.3 % (13-45); MEAN CORPUSCULAR HEMOGLOBIN 29.4 pg (27.0-33.4); MEAN CORPUSCULAR HGB CONC 34.6 g/dL (32.0-36.0); MEAN CORPUSCULAR VOLUME 85 fl (80-97); MONOCYTES % (AUTO) 6.4 % (3-13); RED BLOOD COUNT 5.34 10^6/uL (3.72-5.28); RED CELL DISTRIBUTION WIDTH 13.1 % (11.5-14.0); SEGMENTED NEUTROPHILS % (AUTO) 51.7 % (42-78); WHITE BLOOD COUNT 14.3 10^3/uL (4.0-10.5)
[2016-09-29 14:42] LABS: ALANINE AMINOTRANSFERASE 35 U/L (9-52); ALBUMIN 4.4 g/dL (3.5-5.0); ALKALINE PHOSPHATASE 65 U/L (38-126); ANION GAP 14 (5-19); ASPARTATE AMINO TRANSFERASE 14 U/L (14-36); BILIRUBIN,DIRECT 0.1 mg/dL (0.0-0.4); BILIRUBIN,TOTAL 0.5 mg/dL (0.2-1.3); BLOOD UREA NITROGEN 13 mg/dL (7-20); CALCIUM 10.4 mg/dL (8.4-10.2); CARBON DIOXIDE 25 mmol/L (22-30); CHLORIDE 104 mmol/L (98-107); CREATININE RESULT 0.46 mg/dL (0.52-1.25); GLUCOSE 115 mg/dL (75-110); SODIUM 142.9 mmol/L (137-145)
[2016-09-29 20:02] LABS: PROTHROMBIN TIME 12.8 SEC (11.4-15.4)
[2016-09-29 20:03] LABS: PARTIAL THROMBOPLASTIN TIME 26.3 SEC (23.5-35.8)
[2016-09-29] MEDS ORDERED: HYDROCODONE/ACETAMINOPHEN 5-325 MG 6 TAB/DSPK PO PRN (20:35)
[2016-09-29] MEDS ORDERED: RIVAROXABAN 15 MG TABLET PO ONE (20:35)
--- NOTE | 2016-09-29 20:48 | ER Document Report ---
ED Extremity Problem, Lower - General Chief Complaint: Leg Pain Stated Complaint: LEG PAIN Mode of Arrival: Ambulatory Information source: Patient Notes: 40-year-old well-appearing female presents to the emergency department referred by PCP for positive DVT on ultrasound. Patient eric has had persistent pain to her right lower leg/lateral calf area over the last 2 weeks. Eric was recently admitted and discharged for cellulitis to area and has been taking clindamycin as prescribed. Reports initially had redness and warmth along with the swelling to area and states redness and warmth has resolved but pain and localized swelling have persisted. had an outpatient ultrasound done today which was positive for DVT and was referred to the ED by her primary care provider. Denies fever, chest pain, shortness of breath, abdominal pain, extremity paresthesias or discoloration. TRAVEL OUTSIDE OF THE [place] IN LAST 30 DAYS: No - HPI Patient complains to provider of: Pain, Swelling Location: Leg Onset/Duration: Persistent Quality of pain: Throbbing Severity: Moderate Pain Level: 4 Recent injury: No Exacerbated by: Movement, Walking Relieved by: Elevation, Rest - Related Data Allergies/Adverse Reactions: No Known Allergies Allergy (Verified 09/29/16 13:59) Past Medical History - General Information source: Patient - Social History Smoking Status: Current Every Day Smoker Chew tobacco use (# tins/day): No Frequency of alcohol use: None Drug Abuse: None Lives with: Family Family History: Reviewed & Not Pertinent, DM Patient has suicidal ideation: No Patient has homicidal ideation: No - Past Medical History Cardiac Medical History: Denies: Hx Congestive Heart Failure, Hx DVT, Hx Heart Attack, Hx Hypercholesterolemia, Hx Hypertension, Hx Pulmonary Embolism Pulmonary Medical History: Denies: Hx Asthma, Hx COPD, Hx Sleep Apnea Neurological Medical History: Denies: Hx Seizures Endocrine Medical History: Reports: Hx Diabetes Mellitus Type 2. Denies: Hx Hyperthyroidism, Hx Hypothyroidism Renal/ Medical History: Denies: Hx Peritoneal Dialysis GI Medical History: Denies: Hx Cirrhosis, Hx Hepatitis Psychiatric Medical History: Denies: Hx Depression Infectious Medical History: Denies: Hx C-Diff, Hx Hepatitis, Hx MRSA Surgical Hx: Negative Past Surgical History: Reports: Other - Excision of benign cervical polyp - Immunizations Hx Diphtheria, Pertussis, Tetanus Vaccination: Yes Review of Systems - Review of Systems Constitutional: No symptoms reported EENT: No symptoms reported Cardiovascular: No symptoms reported Respiratory: No symptoms reported Gastrointestinal: No symptoms reported Genitourinary: No symptoms reported Female Genitourinary: No symptoms reported Musculoskeletal: See HPI Skin: No symptoms reported Hematologic/Lymphatic: No symptoms reported Neurological/Psychological: No symptoms reported -: Yes All other systems reviewed and negative Physical Exam - Vital signs Vitals: Temp Pulse Resp BP Pulse Ox 98.3 F 80 20 137/87 H 100 09/29/16 13:56 09/29/16 13:56 09/29/16 13:56 09/29/16 13:56 09/29/16 13:56 - General General appearance: Appears well, Alert In distress: None - HEENT Head: Normocephalic, Atraumatic Eyes: Normal Pupils: PERRL - Respiratory Respiratory status: No respiratory distress Chest status: Nontender Breath sounds: Normal - CTAB Chest palpation: Normal - Cardiovascular Rhythm: Regular Heart sounds: Normal auscultation Murmur: No Pulses: Normal: Radial, Posterior tibial, Dorsalis pedis Normal capillary refill: Yes - Abdominal Inspection: Normal Distension: No distension Bowel sounds: Normal Tenderness: Nontender Organomegaly: No organomegaly - Back Back: Normal, Nontender - Extremities General upper extremity: Normal inspection, Nontender, Normal color, Normal ROM , Normal strength, Normal temperature. No: Tender, Edema General lower extremity: Normal inspection, Nontender, Normal color, Normal ROM , Normal strength, Normal temperature, Normal weight bearing, Huan's sign - Positive right leg. No: Tender, Edema Hip: Normal, Nontender Thigh: Normal, Nontender Knee: Normal, Nontender Calf: Tender - Mild tenderness on palpation to right lateral mid calf area with slight localized swelling and induration. No erythema or warmth. Distal motor and neurovascular function intact with immediate capillary refill, palpable pedal pulses, and immediate sensation. Ankle: Normal, Nontender Foot: Normal, Nontender - Neurological Neuro grossly intact: Yes Cognition: Normal Orientation: AAOx4 [place] Coma Scale Eye Opening: Spontaneous [place] Coma Scale Verbal: Oriented [place] Coma Scale Motor: Obeys Commands Elmo Coma Scale Total: 15 Speech: Normal Motor strength normal: LUE, RUE, LLE, RLE Sensory: Normal - Skin Skin Temperature: Warm Skin Moisture: Dry Skin Color: Normal Course - Re-evaluation Re-evalutation: 03/28/17 20:30 Patient hemodynamically stable, in no distress, afebrile. Reviewed outpatient ultrasound from earlier today which shows DVT to right gastrocnemius vein. Patient's motor and neurovascular function is intact. First dose Xarelto given in ED. Spoke with on-call manufacturing planner/skilled nursing case manager Christiano Ayala who will follow-up with patient tomorrow morning to ensure/facilitate patient obtains the rest of her Xarelto prescription and has adequate follow-up with pcp. Pt appears stable for discharge and outpatient treatment at this time, discussed at length with patient home care, follow-up, and ED return precautions. Pt presentation, findings, and plan consulted with ED physician Dr. Acosta who concurs with evaluation and treatment. - Vital Signs Vital signs: Temp Pulse Resp BP Pulse Ox 98.3 F 80 20 137/87 H 100 09/29/16 13:56 09/29/16 13:56 09/29/16 13:56 09/29/16 13:56 09/29/16 13:56 - Laboratory Result Diagrams: 09/29/16 14:20 09/29/16 14:20 Laboratory results interpreted by me: 09/29/16 09/29/16 14:20 14:20 WBC 14.3 H RBC 5.34 H Hgb 15.7 H Absolute Lymphocytes 5.6 H Creatinine 0.46 L Glucose 115 H Calcium 10.4 H - Diagnostic Test Radiology reviewed: Image reviewed, Reports reviewed Discharge - Discharge Clinical Impression: DVT (deep venous thrombosis) Qualifiers: DVT location: lower extremity Affected thrombotic vein of extremity: other lower extremity vein Laterality: right Chronicity: acute Qualified Code(s): I82.491 - Acute embolism and thrombosis of other specified deep vein of right lower extremity Condition: Stable Disposition: HOME, SELF-CARE Instructions: DVT Outpatient Treatment ([facility]), Oral Narcotic Medication ([facility]) Additional Instructions: Take the Xarelto as directed: 15 mg tablet twice daily for the first 21 days, then 20 mg once daily for the remainder of treatment. You have been given your first dose in the Emergency Department today and a prescription provided for the first 21 days of treatment. Follow-up with your primary care provider in the next 1-2 days for re- evaluation and arrangement of your terminal worker treatment. You should received a call tomorrow morning from the manufacturing planner/social services manager. If you do not receive a call, call to speak with the manufacturing planner. Return to the Emergency Department for any worsening symptoms or concerns. Prescriptions: Oxycodone HCl/Acetaminophen [Percocet 5-325 mg Tablet] 1 tab PO Q6HP PRN #10 tablet PRN Reason: Rivaroxaban [Xarelto] 15 mg PO BID 21 Days Forms: Elevated Blood Pressure, Smoking Cessation Education, Return to Work
[2016-09-30 01:26] VITALS: BP 137/79
== END 2016-09-29 21:45 | disposition home or self-care (01) ==
LOC: ER 13:29
DX: I82.491 Acute embolism and thrombosis of other specified deep vein of right lower extremity (principal); M79.604 Pain in right leg; M79.89 Other specified soft tissue disorders; F17.200 Nicotine dependence, unspecified, uncomplicated
CPT/HCPCS: 36415; 80053; 84702; 85025; 85610; 85730; 99283

== ENCOUNTER → 2016-09-29 | Outpatient (CLI) | payer SELFPAY ==
--- NOTE | 2016-09-29 13:26 | XCELERA REPORT ---
[address] [address] Lower Extremity Venous Evaluation Name: NISHA SWAIN Age: 40 yrs Gender: Female : 1975 Patient Status: Outpatient Patient Location: Study Date: 09/29/2016 12:53 PM Procedure: Color flow and duplex imaging of the veins of the right lower extremity as well as the left Common Femoral vein. Reason For Study: RLE SWELLING Ordering Physician: SIMONE MENDEZ Performed By: Charlene Chan Right Sided Venous Evaluation Enlarged vessel with echogenic content in the Gastrocnemius vein. Otherwise normal vessel filling wall to wall, compression and augmentation as well as Colour flow down to the infrageniculate veins. Left Sided Venous Evaluation The left common femoral vein is fully compressible. Spontaneous and phasic flow is present in the left common femoral vein. Critical Findings Discussed with Dr Mendez at the [facility]. Interpretation Summary Deep venous thrombosis in the Gastrocnemius vein. On the right. The patient will be transferred to the for management. : SIMONE MENDEZ > Wes Conteh
== END ==
LOC: SP 12:37
PROVIDERS: ATTEND Internal Medicine
DX: M79.89 Other specified soft tissue disorders (principal); L03.115 Cellulitis of right lower limb; I82.491 Acute embolism and thrombosis of other specified deep vein of right lower extremity
CPT/HCPCS: 93971

== ENCOUNTER → 2016-12-07 | Outpatient (CLI) | payer OTHER ==
--- NOTE | 2016-12-07 16:18 | WOMENS IMAGING REPORT ---
EXAM DESCRIPTION: BILAT SCREENING MAMMO W/CAD COMPLETED DATE/TIME: 12/07/2016 10:47 am REASON FOR STUDY: Z12.31, ROUTINE SCREENING MAMMO Z12.31 ENCNTR SCREEN MAMMOGRAM FOR MALIGNANT NEOP LASM OF GUTIERREZ COMPARISON: Baseline study TECHNIQUE: Standard craniocaudal and mediolateral oblique views of each breast recorded using [employer] acquisition. LIMITATIONS: None. FINDINGS: Findings present which are benign by mammographic criteria. No suspicious masses, calcifi cations or architectural distortion. Pertinent benign findings: Scattered benign-appearing calcifications bilaterally. Read with the assistance of CAD. .[facility] - R2 [employer]ova Version 1.3 .[facility] - R2 Cenova Version 1.3 .[facility] - R2 Cenova Version 2.4 .[facility] - R2 Cenova Version 2.4 .[facility] - R2 [employer] Version 9.2 Benign mammographic findings may include one or more of the following: Smooth masses, popcorn/rim/co arse calcifications, asymmetries, post-procedure changes, and lesions with long-standing stability. IMPRESSION: BENIGN MAMMOGRAPHIC FINDINGS. BIRADS 2 BREAST DENSITY: c. The breasts are heterogeneously dense, which may obscure small masses. BIRAD: 2 BENIGN FINDING(S) RECOMMENDATION: ROUTINE SCREENING COMMENT: The patient has been notified of the results by letter per SA requirements. Additional no tification policies are in place for contacting patient with suspicious or incomplete findings. Quality ID #[id number]: The [employer] recommends an annual screening mammogram for women aged 40 years or over. This facility utilizes a reminder system to ensure that all patients receive reminder letters, and/or direct phone calls for appointments. This includes reminders for routine scr eening mammograms, diagnostic mammograms, or other Breast Imaging Interventions when appropriate. Th is patient will be placed in the appropriate reminder system. The [employer] (ACR) has developed recommendations for screening MRI of the breast s in certain patient populations, to be used in conjunction with mammography. Breast MRI surveillanc e may be appropriate for women with more than 20% lifetime risk of developing breast cancer as deter mined by genetic testing, significant family history of the disease, or history of mantle radiation f or Hodgkins Disease. ACR Practice Guidelines 2008. TECHNICAL DOCUMENTATION: FINDING NUMBER: (1) ASSESSMENT: (1) JOB ID: [id number] [email or web address]- All Rights Reserved
== END ==
LOC: WI 08:27
DX: Z12.31 Encounter for screening mammogram for malignant neoplasm of breast (principal)
CPT/HCPCS: 77067; G0202

== ENCOUNTER 2017-04-23 12:15 | Emergency (ER) | payer SELFPAY ==
--- NOTE | 2017-04-23 12:49 | ER Document Report ---
ED Medical Screen (RME) - General Chief Complaint: Leg clot Stated Complaint: LEG PAIN Time Seen by Provider: 04/23/17 12:45 Mode of Arrival: Wheelchair Information source: Patient TRAVEL OUTSIDE OF THE [place] IN LAST 30 DAYS: No - HPI Patient complains to provider of: bilateral leg pain Onset: Other - pt. with 2 day h/o bilateral leg pain. 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 -- currently on blood thinners - Related Data Allergies/Adverse Reactions: No Known Allergies Allergy (Verified 09/29/16 13:59) Past Medical History - Social History Chew tobacco use (# tins/day): No Frequency of alcohol use: None Drug Abuse: None - Past Medical History Cardiac Medical History: Denies: Hx Congestive Heart Failure, Hx DVT, Hx Heart Attack, Hx Hypercholesterolemia, Hx Hypertension, Hx Pulmonary Embolism Pulmonary Medical History: Denies: Hx Asthma, Hx COPD, Hx Sleep Apnea Neurological Medical History: Denies: Hx Seizures Endocrine Medical History: Reports: Hx Diabetes Mellitus Type 2. Denies: Hx Hyperthyroidism, Hx Hypothyroidism Renal/ Medical History: Denies: Hx Peritoneal Dialysis GI Medical History: Denies: Hx Cirrhosis, Hx Hepatitis Psychiatric Medical History: Denies: Hx Depression Infectious Medical History: Denies: Hx C-Diff, Hx Hepatitis, Hx MRSA Past Surgical History: Reports: Other - Excision of benign cervical polyp - Immunizations Hx Diphtheria, Pertussis, Tetanus Vaccination: Yes Physical Exam - Vital signs Vitals: Temp Pulse Resp BP Pulse Ox 98.7 F 92 20 157/104 H 100 04/23/17 12:18 04/23/17 12:18 04/23/17 12:18 04/23/17 12:18 04/23/17 12:18 Course - Vital Signs Vital signs: Temp Pulse Resp BP Pulse Ox 98.7 F 92 20 157/104 H 100 04/23/17 12:18 04/23/17 12:18 04/23/17 12:18 04/23/17 12:18 04/23/17 12:18
[2017-04-23 13:04] LABS: ABSOLUTE BASOPHILS # (AUTO) 0.2 10^3/uL (0.0-0.2); ABSOLUTE EOSINOPHILS # (AUTO) 0.3 10^3/uL (0.0-0.6); ABSOLUTE LYMPHOCYTES (AUTO) 5.4 10^3/uL (0.5-4.7); ABSOLUTE MONOCYTES (AUTO) 1.1 10^3/uL (0.1-1.4); ABSOLUTE NEUT (AUTO) 11.6 10^3/uL (1.7-8.2); BASOPHILS % (AUTO) 0.9 % (0-2); EOSINOPHILS % (AUTO) 1.4 % (0-6); HEMATOCRIT 47.1 % (36.0-47.0); HEMOGLOBIN 16.9 g/dL (12.0-15.5); HGB HCT DIFFERENCE 3.6; LYMPHOCYTES % (AUTO) 29.2 % (13-45); MEAN CORPUSCULAR HEMOGLOBIN 30.9 pg (27.0-33.4); MEAN CORPUSCULAR HGB CONC 35.8 g/dL (32.0-36.0); MEAN CORPUSCULAR VOLUME 86 fl (80-97); MONOCYTES % (AUTO) 5.8 % (3-13); RED BLOOD COUNT 5.45 10^6/uL (3.72-5.28); SEGMENTED NEUTROPHILS % (AUTO) 62.7 % (42-78); WHITE BLOOD COUNT 18.5 10^3/uL (4.0-10.5)
[2017-04-23 13:19] LABS: ALANINE AMINOTRANSFERASE 36 U/L (9-52); ALBUMIN 4.4 g/dL (3.5-5.0); ALKALINE PHOSPHATASE 79 U/L (38-126); ANION GAP 14 (5-19); ASPARTATE AMINO TRANSFERASE 18 U/L (14-36); BILIRUBIN,DIRECT 0.3 mg/dL (0.0-0.4); BILIRUBIN,TOTAL 0.5 mg/dL (0.2-1.3); BLOOD UREA NITROGEN 11 mg/dL (7-20); CARBON DIOXIDE 24 mmol/L (22-30); CHLORIDE 101 mmol/L (98-107); GLUCOSE 309 mg/dL (75-110); POTASSIUM 4.2 mmol/L (3.6-5.0); SODIUM 138.7 mmol/L (137-145); TOTAL PROTEIN 7.4 g/dL (6.3-8.2)
--- NOTE | 2017-04-23 14:31 | ER Document Report ---
ED General - General Chief Complaint: Leg Pain Stated Complaint: LEG PAIN Time Seen by Provider: 04/23/17 12:45 Mode of Arrival: Wheelchair Information source: Patient Notes: 41-year-old diabetic female history of DVT presents with complaints of right leg pain. Patient notes her blood sugars have been in the 300s and she has been working on this with her primary care physician but they do not have it under control. Patient is on Xarelto notes that she was having leg pain and her primary care physician was concerned about a another DVT and was sent in for evaluation TRAVEL OUTSIDE OF THE [place] IN LAST 30 DAYS: No - HPI Onset: Last week Onset/Duration: Persistent Quality of pain: Sharp Severity: Mild Pain Level: 1 Associated symptoms: Other Exacerbated by: Movement, Walking Relieved by: Denies Similar symptoms previously: Yes Recently seen / treated by doctor: Yes - Related Data Allergies/Adverse Reactions: No Known Allergies Allergy (Verified 09/29/16 13:59) Past Medical History - General Information source: Patient - Social History Smoking Status: Current Every Day Smoker Cigarette use (# per day): Yes Chew tobacco use (# tins/day): No Smoking Education Provided: No Frequency of alcohol use: None Drug Abuse: None Family History: Reviewed & Not Pertinent, DM Patient has suicidal ideation: No Patient has homicidal ideation: No - Past Medical History Cardiac Medical History: Denies: Hx Congestive Heart Failure, Hx DVT, Hx Heart Attack, Hx Hypercholesterolemia, Hx Hypertension, Hx Pulmonary Embolism Pulmonary Medical History: Denies: Hx Asthma, Hx COPD, Hx Sleep Apnea Neurological Medical History: Denies: Hx Seizures Endocrine Medical History: Reports: Hx Diabetes Mellitus Type 2. Denies: Hx Hyperthyroidism, Hx Hypothyroidism Renal/ Medical History: Denies: Hx Peritoneal Dialysis GI Medical History: Denies: Hx Cirrhosis, Hx Hepatitis Psychiatric Medical History: Denies: Hx Depression Infectious Medical History: Denies: Hx C-Diff, Hx Hepatitis, Hx MRSA Past Surgical History: Reports: Other - Excision of benign cervical polyp - Immunizations Hx Diphtheria, Pertussis, Tetanus Vaccination: Yes Review of Systems - Review of Systems Notes: REVIEW OF SYSTEMS: CONSTITUTIONAL : Denies fever, chills, or sweats. Denies recent illness. EENT: Denies eye, ear, throat, or mouth pain or symptoms. Denies nasal or sinus congestion or discharge. Denies throat, tongue, or mouth swelling or difficulty swallowing. CARDIOVASCULAR: Denies chest pain. Denies palpitations or racing or irregular heart beat. Denies ankle edema. RESPIRATORY: Denies cough, cold, or chest congestion. Denies shortness of breath, difficulty breathing, or wheezing. GASTROINTESTINAL: Denies abdominal pain or distention. Denies nausea, vomiting , or diarrhea. Denies blood in vomitus, stools, or per rectum. Denies black, tarry stools. Denies constipation. GENITOURINARY: Denies difficulty urinating, painful urination, burning, frequency, blood in urine, or discharge. FEMALE GENITOURINARY: Denies vaginal bleeding, heavy or abnormal periods, irregular periods. Denies vaginal discharge or odor. MUSCULOSKELETAL: Admits to right leg pain SKIN: Denies rash, lesions or sores. HEMATOLOGIC : Denies easy bruising or bleeding. LYMPHATIC: Denies swollen, enlarged glands. NEUROLOGICAL: Denies confusion or altered mental status. Denies passing out or loss of consciousness. Denies dizziness or lightheadedness. Denies headache. Denies weakness or paralysis or loss of use of either side. Denies problems with gait or speech. Denies sensory loss, numbness, or tingling. Denies seizures. PSYCHIATRIC: Denies anxiety or stress. Denies depression, suicidal ideation, or homicidal ideation. ALL OTHER SYSTEMS REVIEWED AND NEGATIVE. PHYSICAL EXAMINATION: GENERAL: Well-appearing, well-nourished and in no acute distress. HEAD: Atraumatic, normocephalic. EYES: Pupils equal round and reactive to light, extraocular movements intact, conjunctiva are normal. ENT: Nares patent, oropharynx clear without exudates. Moist mucous membranes. NECK: Normal range of motion, supple without lymphadenopathy LUNGS: Breath sounds clear to auscultation bilaterally and equal. No wheezes rales or rhonchi. HEART: Regular rate and rhythm without murmurs ABDOMEN: Soft, nontender, nondistended abdomen. No guarding, no rebound. No masses appreciated. Female : deferred Musculoskeletal: Normal range of motion, no pitting or edema. No cyanosis. NEUROLOGICAL: Cranial nerves grossly intact. Normal speech, normal gait. Normal sensory, motor exams PSYCH: Normal mood, normal affect. SKIN: Warm, Dry, normal turgor, no rashes or lesions noted. Dictation was performed using Dragon voice recognition software Physical Exam - Vital signs Vitals: Temp Pulse Resp BP Pulse Ox 98.7 F 92 20 157/104 H 100 04/23/17 12:18 04/23/17 12:18 04/23/17 12:18 04/23/17 12:18 04/23/17 12:18 Course - Re-evaluation Re-evalutation: 04/23/17 14:35 Doppler was performed no acute abnormality was noted. Patient overall looks well is in no distress. I believe her symptoms may be secondary to neuropathy given how elevated her glucose has been in the past. Patient has been given very strict return precautions regarding this states she understands and will follow up with primary care physician After performing a Medical Screening Examination, I estimate there is LOW risk for OPEN FRACTURE, COMPARTMENT SYNDROME, TENDON RUPTURE, ACUTE NEUROVASCULAR INJURY, or RETAINED FOREIGN BODY, thus I consider the discharge disposition reasonable. Also, there is no evidence or peritonitis, sepsis, or toxicity. I have reevaluated this patient multiple times and no significant life threatening changes are noted. The patient and I have discussed the diagnosis and risks, and we agree with discharging home with close follow-up with the understanding that symptoms and presentations can change. We also discussed returning to the Emergency Department immediately if new or worsening symptoms occur. We have discussed the symptoms which are most concerning (e.g., changing or worsening pain, fever, numbness, weakness, cool or painful digits) that necessitate immediate return. - Vital Signs Vital signs: Temp Pulse Resp BP Pulse Ox 98.7 F 92 20 157/104 H 100 04/23/17 12:18 04/23/17 12:18 04/23/17 12:18 04/23/17 12:18 04/23/17 12:18 - Laboratory Result Diagrams: 04/23/17 12:45 04/23/17 12:45 Laboratory results interpreted by me: 04/23/17 04/23/17 12:45 12:45 WBC 18.5 H RBC 5.45 H Hgb 16.9 H Hct 47.1 H Absolute Neutrophils 11.6 H Absolute Lymphocytes 5.4 H Glucose 309 H - Diagnostic Test Radiology reviewed: Image reviewed, Reports reviewed Discharge - Discharge Clinical Impression: Neuralgia, Diabetes mellitus type 2 in nonobese Condition: Stable Disposition: HOME, SELF-CARE Instructions: Neuralgia ([facility]) Prescriptions: Gabapentin [Neurontin 300 mg Capsule] 300 mg PO Q12 #60 capsule Referrals: ROXANNE RUDOLPH MD [Primary Care Provider] - Follow up as needed
[2017-04-23 14:43] VITALS: BP 146/97
--- NOTE | 2017-04-24 08:07 | XCELERA REPORT ---
[address] [address] Lower Extremity Venous Evaluation Name: NISHA SWAIN Age: 41 yrs Gender: Female : 1975 Patient Status: Emergency Patient Location: ER Study Date: 04/23/2017 01:24 PM Procedure: Color flow and duplex imaging bilaterally of the veins of the lower extremities as well as the Common Femoral veins. Reason For Study: bilateral leg pain Ordering Physician: JAIRON HARTMAN Performed By: Bernie Muhammad Right Sided Venous Evaluation Normal vessel filling wall to wall, compression and augmentation as well as Colour flow down to the infrageniculate veins. Left Sided Venous Evaluation Normal vessel filling wall to wall, compression and augmentation as well as Colour flow down to the infrageniculate veins. Interpretation Summary No duplex evidence of DVT or obstruction in the bilateral lower extremities. : JAIRON HARTMAN > Wes Conteh
== END 2017-04-23 14:43 | disposition home or self-care (01) ==
LOC: ER 12:15
DX: E11.42 Type 2 diabetes mellitus with diabetic polyneuropathy (principal); F17.210 Nicotine dependence, cigarettes, uncomplicated; Z86.718 Personal history of other venous thrombosis and embolism; Z79.02 Long term (current) use of antithrombotics/antiplatelets
CPT/HCPCS: 36415; 80053; 85025; 93970; 99284

== ENCOUNTER 2017-06-22 02:34 | Emergency (ER) | payer SELFPAY ==
--- NOTE | 2017-06-22 03:13 | ER Document Report ---
ED General - General Chief Complaint: Toe Injury Stated Complaint: TOE INJURY Time Seen by Provider: 06/22/17 02:53 Notes: Patient is a 41-year-old female who presents with complaints of hurting her left fifth toe by actually taking the bed. She denies any other injuries or complaints. She has some pain shooting into her foot on the lateral aspect of the foot. She denies pain to the rest of the foot. She denies pain to any other toes other than the left fifth toe. TRAVEL OUTSIDE OF THE [place] IN LAST 30 DAYS: No - Related Data Allergies/Adverse Reactions: No Known Allergies Allergy (Verified 09/29/16 13:59) Past Medical History - Social History Smoking Status: Current Every Day Smoker Chew tobacco use (# tins/day): No Frequency of alcohol use: None Drug Abuse: None Family History: Reviewed & Not Pertinent, DM Patient has suicidal ideation: No Patient has homicidal ideation: No - Past Medical History Cardiac Medical History: Denies: Hx Congestive Heart Failure, Hx DVT, Hx Heart Attack, Hx Hypercholesterolemia, Hx Hypertension, Hx Pulmonary Embolism Pulmonary Medical History: Denies: Hx Asthma, Hx COPD, Hx Sleep Apnea Neurological Medical History: Denies: Hx Seizures Endocrine Medical History: Reports: Hx Diabetes Mellitus Type 2. Denies: Hx Hyperthyroidism, Hx Hypothyroidism Renal/ Medical History: Denies: Hx Peritoneal Dialysis GI Medical History: Denies: Hx Cirrhosis, Hx Hepatitis Psychiatric Medical History: Denies: Hx Depression Infectious Medical History: Denies: Hx C-Diff, Hx Hepatitis, Hx MRSA Past Surgical History: Reports: Other - Excision of benign cervical polyp - Immunizations Hx Diphtheria, Pertussis, Tetanus Vaccination: Yes Review of Systems - Review of Systems Notes: My Normal Review Basic REVIEW OF SYSTEMS: MUSCULOSKELETAL: Left fifth toe pain SKIN: Denies rash or skin lesions. NEUROLOGICAL: Denies sensory or motor loss. ALL OTHER SYSTEMS REVIEWED AND NEGATIVE. Physical Exam - Vital signs Vitals: Temp Pulse Resp BP Pulse Ox 98.5 F 88 20 173/88 H 98 06/22/17 02:39 06/22/17 02:39 06/22/17 02:39 06/22/17 02:39 06/22/17 02:39 - Notes Notes: General Appearance: Well nourished, alert, cooperative, no acute distress, mild obvious discomfort. Vitals: reviewed, See vital signs table. Extremities: strength 5/5 in all extremities, good pulses in all extremities, patient has some bruising and swelling to left fifth toe. Patient does have some pain to palpation over the distal left metatarsal. Remainder foot is nontender. Skin: warm, dry, appropriate color, no rash Neuro: speech clear, oriented x 3, normal affect, responds appropriately to questions. Course - Re-evaluation Re-evalutation: 06/22/17 05:20 Patient does have a fracture of the left fifth toe. The remainder of the distal foot is no evidence of fracture. Patient have her toes perlita taped and then will be given crutches. I encouraged her return to ER if she has worsening pain or swelling if she feels unwell. Patient agrees with plan will be discharged home. Dictation of this chart was performed using voice recognition software; therefore, there may be some unintended grammatical errors. - Vital Signs Vital signs: Temp Pulse Resp BP Pulse Ox 98.4 F 97 18 155/95 H 99 06/22/17 04:05 06/22/17 04:05 06/22/17 04:05 06/22/17 04:05 06/22/17 04:05 Discharge - Discharge Clinical Impression: Toe fracture, left Qualifiers: Encounter type: initial encounter Toe: lesser toe Fracture type: closed Phalanx : middle Fracture alignment: nondisplaced Qualified Code(s): S92.525A - Nondisplaced fracture of middle phalanx of left lesser toe(s), initial encounter for closed fracture Condition: Good Disposition: HOME, SELF-CARE Additional Instructions: Please continue to perlita tape your toe for the next 6 weeks. Use the crutches for the first week. After the first week you can attempt to see if you have pain with walking. If you do not have much pain you can stop using the crutches , but no running for at least 4-6 week. If you continue to have pain after one week than continue to use the crutches for another week. please follow up with your doctor in 1 week for reevaluation.
--- NOTE | 2017-06-22 03:45 | RADIOLOGY REPORT (SQ) ---
EXAM DESCRIPTION: TOE LEFT CLINICAL HISTORY: 41 years, Female, trauma COMPARISON: None. NUMBER OF VIEWS: 3 LIMITATIONS: None. FINDINGS: No acute defect of the left fifth toe. 0.3 cm developmental well-corticated calcification at the lateral aspect of the left fifth proximal interphalangeal joint. Small left navicular osteophytosis. IMPRESSION: No acute findings. 2011 [facility] [employer]- All Rights Reserved
[2017-06-22 04:30] VITALS: BP 155/95
== END 2017-06-22 04:05 | disposition home or self-care (01) ==
LOC: ER 02:34
DX: S92.525A Nondisplaced fracture of middle phalanx of left lesser toe(s), initial encounter for closed fracture (principal); W22.8XXA Striking against or struck by other objects, initial encounter; F17.200 Nicotine dependence, unspecified, uncomplicated
CPT/HCPCS: 99283

== ENCOUNTER 2017-07-28 11:26 | Emergency (ER) | payer SELFPAY ==
[2017-07-28] MEDS ORDERED: KETOROLAC TROMETHAMINE 60 MG/2 ML SDV IM ONE (15:03)
--- NOTE | 2017-07-28 15:06 | ER Document Report ---
ED Extremity Problem, Lower - General Chief Complaint: Toe Injury Stated Complaint: TOE INJURY Time Seen by Provider: 07/28/17 14:24 Mode of Arrival: Ambulatory Information source: Patient TRAVEL OUTSIDE OF THE [place] IN LAST 30 DAYS: No - HPI Patient complains to provider of: Pain Location: 5th Toe Occurred: Other - 6-7 weeks ago Where: Home Quality of pain: Achy Severity: Moderate Notes: Patient arrives with complaints of left fifth toe pain. Few weeks prior to [place] she stubbed her toe on her foot board of her bed. She had a toe wrapped and was sent home. She continues to have a lot of pain in this toe. She states that toe is also discolored and purple in color. She denies any fevers. She denies any numbness, tingling, weakness. She denies any bleeding. She is not on any blood thinning medications. Her only past medical history is diabetes for which she takes 2 oral medications for. She denies any rashes. No chest pain or shortness of breath. No nausea, vomiting, diarrhea. No other complaints at this time. Pain is worse with touch and walking, nothing makes it better. - Related Data Allergies/Adverse Reactions: No Known Allergies Allergy (Verified 07/28/17 11:27) Past Medical History - Social History Smoking Status: Current Every Day Smoker Frequency of alcohol use: None Drug Abuse: None Family History: Reviewed & Not Pertinent, DM Patient has suicidal ideation: No Patient has homicidal ideation: No - Past Medical History Cardiac Medical History: Denies: Hx Congestive Heart Failure, Hx DVT, Hx Heart Attack, Hx Hypercholesterolemia, Hx Hypertension, Hx Pulmonary Embolism Pulmonary Medical History: Denies: Hx Asthma, Hx COPD, Hx Sleep Apnea Neurological Medical History: Denies: Hx Seizures Endocrine Medical History: Reports: Hx Diabetes Mellitus Type 2. Denies: Hx Hyperthyroidism, Hx Hypothyroidism Renal/ Medical History: Denies: Hx Peritoneal Dialysis GI Medical History: Denies: Hx Cirrhosis, Hx Hepatitis Psychiatric Medical History: Denies: Hx Depression Infectious Medical History: Denies: Hx C-Diff, Hx Hepatitis, Hx MRSA Past Surgical History: Reports: Other - Excision of benign cervical polyp - Immunizations Hx Diphtheria, Pertussis, Tetanus Vaccination: Yes Review of Systems - Review of Systems -: Yes All other systems reviewed and negative Physical Exam - Notes Notes: GENERAL: alert, cooperative, nontoxic, no distress. HEAD: normocephalic, atraumatic EYES: conjunctiva pink without discharge, no external redness or swelling. EARS: no external swelling, no external redness NOSE: atraumatic, no external swelling MOUTH/THROAT: mucous membranes moist and pink NECK: soft, supple, full range of motion, no meningismus. CHEST: no distress, lungs clear and equal throughout. No wheezing, rales, rhonchi. CARDIAC: regular rate and rhythm, no murmur, normal capillary refill, normal pulses. BACK: full range of motion, no CVA tenderness. EXTREMITIES: full range of motion of all extremities. Tenderness to palpation of the left fifth toe. Purple/ecchymotic appearance to the toe. Normal cap refill. Normal sensation. No redness, swelling. Normal pulse to the foot. No redness to the foot. NEURO: alert and oriented 3, no focal deficits, full range of motion of all extremities. PYSCH: appropriate mood, affect. Patient is cooperative. SKIN: pink, warm, dry, no rash. Course - Re-evaluation Re-evalutation: 07/28/17 15:29 The patient is nontoxic appearing with stable vitals. The patient injured her left fifth toe 5-6 weeks ago and continues to have pain in this toe with discoloration of the toe. Toe has normal cap refill and sensation. She has tenderness to palpation of this toe. There is no redness or sign of infection. She has no fever. X-ray shows likely a chronic injury to the lateral collateral ligaments of the left fifth toe. The patient is neurovascular intact. She will be placed in a postop shoe and will be instructed to follow- up with podiatry at the next available appointment. She should follow-up sooner for increasing pain, fever, redness, numbness, tingling, weakness, any further concerns. The patient is noted to have elevated blood pressure during today's emergency department visit. The patient was informed of this finding. The patient was instructed that this may be related to pre-hypertension and requires further evaluation with a primary care provider. The patient has no hypertensive symptoms at this time. The patient's emergency department workup and current diagnosis were explained to the patient and or family. Follow-up instructions were provided. Medications if prescribed were discussed. Instructions for when to return to the emergency department including specific worrisome symptoms were discussed with the patient and/or family. - Diagnostic Test Radiology reviewed: Image reviewed, Reports reviewed - Chronic injury to the LCL of the left fifth toe. No acute findings. Procedures - Immobilization Left foot Pre-Proc Neuro Vasc Exam: Normal Immobilizer type: Post-op shoe Performed by: PCT Post-Proc Neuro Vasc Exam: Normal Alignment checked and good: Yes Discharge - Discharge Clinical Impression: Chronic toe pain, left foot Condition: Stable Disposition: HOME, SELF-CARE Instructions: Fractured Toe ([facility]) Additional Instructions: Wear postop shoe as needed for comfort. Take medications as prescribed. Follow -up with a pressure control supervisor at the next available appointment. Follow-up sooner for increasing pain, fever, redness of the foot, numbness, tingling, weakness, any further concerns. Your blood pressure was elevated during today's visit. Have this rechecked with your doctor. The medication you were prescribed today may cause drowsiness. Do not drive or operate heavy machinery while taking this medication. Prescriptions: Tramadol HCl [Ultram 50 mg Tablet] 50 mg PO Q6HP PRN #12 tablet PRN Reason: Diclofenac Sodium [Voltaren 50 Mg Tablet.Dr] 50 mg PO BID #20 tablet. Forms: Elevated Blood Pressure, Smoking Cessation Education Referrals: [facility] [Primary Care Provider] - Follow up as needed JYOTSNA CHEN DPM [ACTIVE STAFF] - Follow up as needed HE RAYO DPM [ACTIVE STAFF] - Follow up as needed ZACKERY SCHWAB DPM [ACTIVE STAFF] - Follow up as needed SHERITA WOODS DPM [ACTIVE STAFF] - Follow up as needed AMBERLY TAYLOR DPM [NO LOCAL MD] - Follow up as needed MILLIE CRUZ DPM [NO LOCAL MD] - Follow up as needed
--- NOTE | 2017-07-28 15:22 | RADIOLOGY REPORT (SQ) ---
EXAM DESCRIPTION: FOOT LEFT COMPLETE COMPLETED DATE/TIME: 07/28/2017 2:46 pm REASON FOR STUDY: 5th toe pain COMPARISON: None. NUMBER OF VIEWS: Three views. TECHNIQUE: AP, lateral and oblique radiographic images acquired of the left foot. LIMITATIONS: None. FINDINGS: MINERALIZATION: Normal. BONES: No acute fracture or malalignment. Along the lateral aspect of the pinky toe PIP joint, too s mall calcifications/ossifications are present which could reflect lateral collateral ligament ossific ation at the joint. Small dorsal calcaneal spurs at the Achilles attachment. Mild bony spurring caryn ng the tarsal navicular bone at the talonavicular joint. JOINTS: No effusions. SOFT TISSUES: No soft tissue swelling. No foreign body. OTHER: No other significant finding. IMPRESSION: Suspect chronic injury pinky toe lateral collateral ligament at the PIP joint. No acute fracture or malalignment. TECHNICAL DOCUMENTATION: JOB ID: [id number] [email or web address]- All Rights Reserved
[2017-07-28 16:15] VITALS: BP 159/97
== END 2017-07-28 15:53 | disposition home or self-care (01) ==
LOC: ER 11:26
DX: S99.922A Unspecified injury of left foot, initial encounter (principal); W22.03XA Walked into furniture, initial encounter; M79.675 Pain in left toe(s); G89.29 Other chronic pain; E11.9 Type 2 diabetes mellitus without complications; Z79.84 Long term (current) use of oral hypoglycemic drugs; F17.200 Nicotine dependence, unspecified, uncomplicated
CPT/HCPCS: 99283; 96372; 73630; J1885

== ENCOUNTER 2017-09-18 19:30 | Emergency (ER) | payer SELFPAY ==
[2017-09-18] MEDS ORDERED: NORMAL SALINE 1000 ML 1,000 ML IV ONE (20:04)
[2017-09-18] MEDS ORDERED: ONDANSETRON HCL INJ/PF 4 MG/2 ML SDV IV ONE (20:04)
[2017-09-18] MEDS ORDERED: METOCLOPRAMIDE HCL INJ/PF 10 MG/2 ML SDV IV ONE (20:33)
[2017-09-18] MEDS ORDERED: PANTOPRAZOLE SODIUM 40 MG VIAL IV ONE (20:35)
[2017-09-18] MEDS ORDERED: MAG HYDROX/AL HYDROX/SIMETH SUSP 30 ML UDCUP PO ONE (20:36)
[2017-09-18] MEDS ORDERED: METOCLOPRAMIDE HCL ORAL SOLN 10 MG/10 ML UDCUP PO ONE (20:36)
[2017-09-18] MEDS ORDERED: LIDOCAINE 2% VISCOUS SOLN 20 ML UDCUP PO ONE (20:36)
--- NOTE | 2017-09-18 20:36 | ER Document Report ---
ED General - General Chief Complaint: Vomiting Stated Complaint: STOMACH PAIN Time Seen by Provider: 09/18/17 20:01 Notes: Patient is a 41-year-old female with past medical history of hypertension, non- insulin-dependent type 2 diabetes who presents with 4 days of upper abdominal pain, nausea and vomiting. She does describe the abdominal pain as a constant, stabbing, throbbing pain to her upper abdomen. Patient states that she has had difficulty tolerating even water over the past 48 hours which prompted her come to the emergency room today due to concerns of dehydration. She denies a history of similar symptoms in the past. Nothing seems to improve or worsen her symptoms. She has not seen a primary care doctor regarding today's concerns. She denies any chest pain, shortness of breath, headache, neck pain, fever or altered mental status. She states that she has been taking her medications as directed although she does note that her blood sugars continue to be significantly elevated at home. TRAVEL OUTSIDE OF THE [place] IN LAST 30 DAYS: No - Related Data Allergies/Adverse Reactions: No Known Allergies Allergy (Verified 09/18/17 21:55) Past Medical History - General Information source: Patient - Social History Smoking Status: Never Smoker Frequency of alcohol use: None Drug Abuse: None Family History: Reviewed & Not Pertinent, DM - Past Medical History Cardiac Medical History: Denies: Hx Congestive Heart Failure, Hx DVT, Hx Heart Attack, Hx Hypercholesterolemia, Hx Hypertension, Hx Pulmonary Embolism Pulmonary Medical History: Denies: Hx Asthma, Hx COPD, Hx Sleep Apnea Neurological Medical History: Denies: Hx Seizures Endocrine Medical History: Reports: Hx Diabetes Mellitus Type 2. Denies: Hx Hyperthyroidism, Hx Hypothyroidism Renal/ Medical History: Denies: Hx Peritoneal Dialysis GI Medical History: Denies: Hx Cirrhosis, Hx Hepatitis Psychiatric Medical History: Denies: Hx Depression Infectious Medical History: Denies: Hx C-Diff, Hx Hepatitis, Hx MRSA Past Surgical History: Reports: Other - Excision of benign cervical polyp - Immunizations Hx Diphtheria, Pertussis, Tetanus Vaccination: Yes Review of Systems - Review of Systems Notes: Constitutional: Negative for fever. HENT: Negative for sore throat. Eyes: Negative for visual changes. Cardiovascular: Negative for chest pain. Respiratory: Negative for shortness of breath. Gastrointestinal: Positive for abdominal pain vomiting Genitourinary: Negative for dysuria. Musculoskeletal: Negative for back pain. Skin: Negative for rash. Neurological: Negative for headaches, weakness or numbness. 10 point ROS negative except as marked above and in HPI. Physical Exam - Vital signs Vitals: Temp Pulse Resp BP Pulse Ox 99.2 F 109 H 20 152/104 H 99 09/18/17 19:37 09/18/17 19:37 09/18/17 19:37 09/18/17 19:37 09/18/17 19:37 Interpretation: Hypertensive, Tachycardic Notes: PHYSICAL EXAMINATION: GENERAL: Appears moderately uncomfortable but no acute distress HEAD: Atraumatic, normocephalic. EYES: Pupils equal round and reactive to light, extraocular movements intact, sclera anicteric, conjunctiva are normal. ENT: nares patent, oropharynx clear without exudates. Mild dry mucous membranes. NECK: Normal range of motion, supple without lymphadenopathy LUNGS: Breath sounds clear to auscultation bilaterally and equal. No wheezes rales or rhonchi. HEART: Regular tachycardia without murmurs ABDOMEN: Soft, mild epigastric and right upper quadrant abdominal tenderness but no other localized areas of tenderness, normoactive bowel sounds. No guarding, no rebound. No masses appreciated. EXTREMITIES: Normal range of motion, no pitting or edema. No cyanosis. NEUROLOGICAL: No focal neurological deficits. Moves all extremities spontaneously and on command. PSYCH: Normal mood, normal affect. SKIN: Warm, Dry, normal turgor, no rashes or lesions noted. Course - Re-evaluation Re-evalutation: 09/18/17 20:35 Patient presents with epigastric abdominal pain with associated reflux symptoms most consistent with likely gastritis versus diabetic gastroparesis. Patient has no focal abdominal tenderness on examination. Mild epigastric abdominal tenderness. Right upper quadrant ultrasound does not demonstrate any evidence of acute cholecystitis or cholelithiasis. Lipase is normal. No LFT changes. Based on history and exam, I do not suspect ACS, pulmonary embolus, SBO, mesenteric ischemia, acute pancreatitis, biliary pathology, or an abdominal aortic dissection. 2 view of the abdomen likewise does not support a diagnosis of an obstruction and patient has been able to tolerate oral intake. I have emphasized with the patient the critical importance of long-term blood sugar management as she continues to be hyperglycemic and notes that her last hemoglobin A1c was 11. 09/18/17 22:21 Hemoglobin A1c continues to be markedly elevated at 11.1. The remainder of the patient's laboratories are otherwise unremarkable. Right upper quadrant ultrasound does not demonstrate any evidence of acute biliary pathology although does show chronic hepatocellular disease. I have instructed her to follow-up regarding this finding. Two-view abdomen does not show any evidence of obstruction. Patient has tolerated oral intake throughout her stay without any difficulty. At this time she states her symptoms have completely resolved and she feels much better. She will be discharged home with a prescription for Carafate prior to meals, famotidine, as well as Reglan. I have heavily emphasized the patient that she needs to transition to insulin as she continues to have dangerously elevated blood sugars despite taking oral hypoglycemics as directed by her doctor. At this time will discharge with return precautions and follow-up recommendations. Verbal discharge instructions given a the bedside and opportunity for questions given. Medication warnings reviewed. Patient is in agreement with this plan and has verbalized understanding of return precautions and the need for primary care follow-up in the next 24-72 hours. - Vital Signs Vital signs: Temp Pulse Resp BP Pulse Ox 98.9 F 109 H 12 177/101 H 100 09/18/17 22:38 09/18/17 19:37 09/18/17 22:34 09/18/17 22:34 09/18/17 22:36 - Laboratory Result Diagrams: 09/18/17 20:49 09/18/17 20:49 Laboratory results interpreted by me: 09/18/17 09/18/17 09/18/17 19:50 20:49 20:49 WBC 11.9 H RBC 5.94 H Hgb 17.4 H Hct 50.9 H Absolute Lymphocytes 5.2 H Glucose 340 H POC Glucose 387 H Hemoglobin A1c % 09/18/17 20:49 WBC RBC Hgb Hct Absolute Lymphocytes Glucose POC Glucose Hemoglobin A1c % 11.1 H - Diagnostic Test Radiology reviewed: Image reviewed, Reports reviewed Radiology results interpreted by me: 09/18/17 22:24 2 view abdomen: No evidence of obstruction or perforation Discharge - Discharge Clinical Impression: Epigastric abdominal pain Nausea and vomiting Qualifiers: Vomiting type: unspecified Vomiting Intractability: non-intractable Qualified Code(s): R11.2 - Nausea with vomiting, unspecified Hyperglycemia due to type 2 diabetes mellitus Qualifiers: Diabetes mellitus rodent exterminator insulin use: without rodent exterminator use Qualified Code(s ): E11.65 - Type 2 diabetes mellitus with hyperglycemia Condition: Good Disposition: HOME, SELF-CARE Additional Instructions: Your symptoms appear to be most consistent with stomach or upper intestinal irritation. Please begin taking famotidine 40 mg in the morning and 40 mg at night. This medicine can be purchased directly [id number]. You may also take medicine such as Pepto-Bismol or Tums to assist with your pain. You may take the Reglan that has been prescribed as needed for nausea. Please take Carafate before you eat. Please return to emergency department immediately if you have worsening of your pain, shortness of breath, vomiting, become unable to exert yourself due to pain or difficulty breathing, you pass out, or have any pain that radiates into your arms, jaw, or back. Please also return if you have any additional symptoms that are concerning to you. As we have discussed, the most important thing is lifestyle changes. You need to avoid smoking, sodas , tea, coffee, alcohol, spicy foods, and acidic foods such as citrus fruits, tomato based products, berries, and most fruit juices. You need to followup urgently with your primary care doctor as your blood sugars were dangerously high today. You have chronically elevated blood sugars and her hemoglobin A1c is again 11.1 today. Please discuss with her primary care doctor about going onto insulin as it appears that oral hypoglycemic drugs are not sufficient to keep your blood sugars regulated. You did not have any evidence of a dangerous condition associated with these blood sugars at this time. Please take all of your medications exactly as directed. You should avoid foods that are high in carbohydrates and sugary foods. Please return to emergency department immediately if you develop weakness, persistent vomiting, confusion, or any other symptoms that are concerning to you. Prescriptions: Metoclopramide HCl [Reglan 10 mg Tablet] 10 mg PO Q6HP PRN #30 tablet PRN Reason: Sucralfate [Carafate 1 gm Tablet] 1 gm PO ACHS #120 tablet Referrals: ADAM MENDEZ MD [Primary Care Provider] - Follow up in 3-5 days
[2017-09-18 21:00] LABS: ABSOLUTE BASOPHILS # (AUTO) 0.1 10^3/uL (0.0-0.2); ABSOLUTE EOSINOPHILS # (AUTO) 0.3 10^3/uL (0.0-0.6); ABSOLUTE LYMPHOCYTES (AUTO) 5.2 10^3/uL (0.5-4.7); ABSOLUTE MONOCYTES (AUTO) 0.8 10^3/uL (0.1-1.4); ABSOLUTE NEUT (AUTO) 5.7 10^3/uL (1.7-8.2); BASOPHILS % (AUTO) 0.8 % (0-2); EOSINOPHILS % (AUTO) 2.1 % (0-6); HEMATOCRIT 50.9 % (36.0-47.0); HEMOGLOBIN 17.4 g/dL (12.0-15.5); LYMPHOCYTES % (AUTO) 43.3 % (13-45); MEAN CORPUSCULAR HEMOGLOBIN 29.3 pg (27.0-33.4); MEAN CORPUSCULAR HGB CONC 34.3 g/dL (32.0-36.0); MEAN CORPUSCULAR VOLUME 86 fl (80-97); MONOCYTES % (AUTO) 6.4 % (3-13); PLATELET COUNT 322 10^3/uL (150-450); RED BLOOD COUNT 5.94 10^6/uL (3.72-5.28); RED CELL DISTRIBUTION WIDTH 13.4 % (11.5-14.0); SEGMENTED NEUTROPHILS % (AUTO) 47.4 % (42-78); TOTAL CELLS COUNTED % (AUTO) 100 %; WHITE BLOOD COUNT 11.9 10^3/uL (4.0-10.5)
[2017-09-18 21:11] LABS: ALANINE AMINOTRANSFERASE 34 U/L (9-52); ALBUMIN 4.5 g/dL (3.5-5.0); ALKALINE PHOSPHATASE 68 U/L (38-126); ANION GAP 14 (5-19); ASPARTATE AMINO TRANSFERASE 14 U/L (14-36); BILIRUBIN,DIRECT 0.3 mg/dL (0.0-0.4); BILIRUBIN,TOTAL 0.6 mg/dL (0.2-1.3); BLOOD UREA NITROGEN 11 mg/dL (7-20); CARBON DIOXIDE 24 mmol/L (22-30); CHLORIDE 99 mmol/L (98-107); GLUCOSE 340 mg/dL (75-110); LIPASE 146.4 U/L (23-300); SODIUM 137.3 mmol/L (137-145); TOTAL PROTEIN 7.5 g/dL (6.3-8.2)
--- NOTE | 2017-09-18 21:41 | RADIOLOGY REPORT (SQ) ---
EXAM DESCRIPTION: ABDOMEN 2 VIEWS COMPLETED DATE/TIME: 09/18/2017 9:24 pm REASON FOR STUDY: vomiting, no bm COMPARISON: None. NUMBER OF VIEWS: Two views. TECHNIQUE: Supine and erect radiographic images of the abdomen acquired. LIMITATIONS: None. FINDINGS: FREE AIR: None. No abnormal gas collections. LUNG BASES: Clear. BOWEL GAS PATTERN: Nonobstructive pattern. No dilated loops or air fluid levels. Moderate stool thro ughout the colon CALCIFICATIONS: No suspicious calcifications. SOFT TISSUES: No gross mass or suggestion of organomegaly. HARDWARE: None in the abdomen. BONES: No acute fracture. No worrisome bone lesions. OTHER: No other significant finding. IMPRESSION: NO RADIOGRAPHIC EVIDENCE FOR ACUTE ABDOMINAL DISEASE. TECHNICAL DOCUMENTATION: JOB ID: [id number] [employer]- All Rights Reserved Reading location - IP/workstation name: [email or web address]
--- NOTE | 2017-09-18 22:04 | RADIOLOGY REPORT (SQ) ---
EXAM DESCRIPTION: U/S ABDOMEN LIMITED W/O DOP COMPLETED DATE/TIME: 09/18/2017 9:45 pm REASON FOR STUDY: upper abdominal pain, vomiting COMPARISON: None. TECHNIQUE: Dynamic and static grayscale images acquired of the abdomen and recorded on PACS. Additio nal selected color Doppler and spectral images recorded. LIMITATIONS: None. FINDINGS: PANCREAS: Midline pancreas unremarkable LIVER: Normal size liver with diffuse increased echogenicity from hepatocellular disease. There is f ocal sparing at the gallbladder fossa. LIVER VASCULATURE: Normal directional flow of the main portal vein and hepatic veins. GALLBLADDER: No stones. Normal gallbladder wall thickness with mild adenomyosis. No pericholecystic fluid ULTRASOUND-DETECTED ORNELAS'S SIGN: Negative. INTRAHEPATIC DUCTS AND COMMON DUCT: CBD and intrahepatic ducts normal caliber. No filling defects. INFERIOR VENA CAVA: Normal flow. AORTA: No aneurysm. RIGHT KIDNEY: Normal size. Normal echogenicity. No solid or suspicious masses. No hydronephrosis. No calcifications. PERITONEAL AND RIGHT PLEURAL SPACE: No ascites or effusions. OTHER: No other significant findings. IMPRESSION: Echogenic liver from diffuse hepatocellular disease No gallstones gallbladder wall thickening or pericholecystic fluid TECHNICAL DOCUMENTATION: JOB ID: [id number] [employer]- All Rights Reserved Reading location - IP/workstation name: [email or web address]
[2017-09-18] MEDS ORDERED: FAMOTIDINE 20 MG TABLET PO ONE (22:15)
[2017-09-18 22:42] VITALS: BP 177/101
== END 2017-09-18 22:40 | disposition home or self-care (01) ==
LOC: ER 19:30
DX: R11.2 Nausea with vomiting, unspecified (principal); R10.13 Epigastric pain; E11.65 Type 2 diabetes mellitus with hyperglycemia; I10 Essential (primary) hypertension
CPT/HCPCS: 99284; 96361; 96374; 96375; 36415; 82962; 83690; 84703; 85025; 80053; 83036; 74019; 76705; J3490; J2765; S0164; J7030

== ENCOUNTER → 2018-04-27 | Outpatient (CLI) | payer OTHER ==
--- NOTE | 2018-04-27 11:24 | RADIOLOGY REPORT (SQ) ---
EXAM DESCRIPTION: CHEST PA/LATERAL COMPLETED DATE/TIME: 04/27/2018 10:20 am REASON FOR STUDY: COUGH COMPARISON: None. EXAM PARAMETERS: NUMBER OF VIEWS: two views TECHNIQUE: Digital Frontal and Lateral radiographic views of the chest acquired. RADIATION DOSE: NA LIMITATIONS: none FINDINGS: LUNGS AND PLEURA: No opacities, masses or pneumothorax. No pleural effusion. MEDIASTINUM AND HILAR STRUCTURES: No masses or contour abnormalities. HEART AND VASCULAR STRUCTURES: Heart normal size. No evidence for failure. BONES: No acute findings. HARDWARE: None in the chest. OTHER: No other significant finding. IMPRESSION: NO SIGNIFICANT RADIOGRAPHIC FINDING IN THE CHEST. TECHNICAL DOCUMENTATION: JOB ID: [id number] [employer]- All Rights Reserved Reading location - IP/workstation name: [email or web address]
--- NOTE | 2018-04-27 11:24 | RADIOLOGY REPORT (SQ) ---
EXAM DESCRIPTION: LUMBAR SPINE W/FLEX/EXT COMPLETED DATE/TIME: 04/27/2018 10:20 am REASON FOR STUDY: LBP E11.8 TYPE 2 DIABETES MELLITUS WITH UNSPECIFIED COMPLICATION R05 COUGH COMPARISON: Abdominal films 09/18/2017 NUMBER OF VIEWS: Seven views. TECHNIQUE: AP, lateral, obliques, flexion, extension, and sacral radiographic images acquired. LIMITATIONS: None. FINDINGS: MINERALIZATION: Normal. SEGMENTATION: Normal. No transitional anatomy. ALIGNMENT: Normal. FLEXION/EXTENSION: No instability. VERTEBRAE: Maintained height. No fracture or worrisome bone lesion. DISCS: Very mild disc space loss of height at L3-4, L4-5, and L5-S1 with mild anterior osteophyte for mation. POSTERIOR ELEMENTS: Pedicles and facets are intact. No pars defect or posterior arch defects. HARDWARE: None in the spine. PARASPINAL SOFT TISSUES: Normal. PELVIS: Not included in the field of view. SI joints unremarkable OTHER: No other significant finding. IMPRESSION: Very mild disc space loss of height at L3-4, L4-5, and L5-S1. NO INSTABILITY ON FLEXION/EXTENSION. TECHNICAL DOCUMENTATION: JOB ID: [id number] [employer]- All Rights Reserved Reading location - IP/workstation name: [email or web address]
[2018-04-27 11:28] LABS: IRON(TIBC) 51.9 ug/dL (37-170)
== END ==
LOC: OD 09:30
DX: E11.8 Type 2 diabetes mellitus with unspecified complications (principal); R05 Cough; M54.5 Low back pain; R29.898 Other symptoms and signs involving the musculoskeletal system; F17.200 Nicotine dependence, unspecified, uncomplicated
CPT/HCPCS: 36415; 71046; 72114; 82728; 83540; 83550

== ENCOUNTER 2019-01-24 09:00 | Emergency (ER) | payer SELFPAY ==
[2019-01-24] MEDS ORDERED: KETOROLAC TROMETHAMINE INJ/PF 30 MG/1 ML SDV IM ONE (09:14)
[2019-01-24] MEDS ORDERED: LIDOCAINE 5% (700 MG) TRANSDERMAL ADH..PATCH TP ONE (09:15)
--- NOTE | 2019-01-24 09:20 | ER Document Report ---
ED Neck/Back Problem - General Chief Complaint: Back Pain Stated Complaint: FALL/BACK PAIN Time Seen by Provider: 01/24/19 09:06 Primary Care Provider: [facility] [Primary Care Provider] - Follow up in 3-5 days Mode of Arrival: Wheelchair Information source: Patient Notes: 43-year-old female presented to ED for complaint of pain to the lower left back. She states she fell backwards off of the deck landing on her back. She has a large tender swollen bruised area to the left lower back. She states she does have diabetes no other medical history G she does smoke 1/2 pack a day does not drink or do any drugs. Patient is alert oriented respirations regular and unlabored she has been able to walk but it is very painful. She has not lost control of bowel or bladder and is not loss control of her lower extremities. TRAVEL OUTSIDE OF THE [place] IN LAST 30 DAYS: No - HPI Patient complains to provider of: Pain, Injury, Lower back Onset: Other - Wednesday Where: Home, Outdoors Onset: Gradual Timing: Still present Quality of pain: Sharp Severity: Moderate Pain Level: 4 Context: Fall/near-fall Recent injury: Yes Associated symptoms: Radiation to leg, Lower back pain Exacerbated by: Movement of trunk, Sitting position Relieved by: Nothing Similar symptoms previously: No Recently seen / treated by doctor: No - Related Data Allergies/Adverse Reactions: No Known Allergies Allergy (Verified 01/24/19 09:01) Past Medical History - General Information source: Patient - Social History Smoking Status: Current Every Day Smoker Cigarette use (# per day): Yes - Half pack a day Smoking Education Provided: Yes - Minutes Frequency of alcohol use: None Lives with: Family Family History: Reviewed & Not Pertinent, DM Patient has suicidal ideation: No Patient has homicidal ideation: No - Past Medical History Cardiac Medical History: Reports: None Pulmonary Medical History: Reports: None EENT Medical History: Reports: None Endocrine Medical History: Reports: Hx Diabetes Mellitus Type 2 Renal/ Medical History: Reports: None Malignancy Medical History: Reports: None GI Medical History: Reports: None Musculoskeletal Medical History: Reports None Skin Medical History: Reports None Psychiatric Medical History: Reports: None Traumatic Medical History: Reports: None Infectious Medical History: Reports: None Past Surgical History: Reports: Other - Excision of benign cervical polyp - Immunizations Hx Diphtheria, Pertussis, Tetanus Vaccination: Yes Review of Systems - Review of Systems Constitutional: No symptoms reported EENT: No symptoms reported Cardiovascular: No symptoms reported Respiratory: No symptoms reported Gastrointestinal: No symptoms reported Genitourinary: No symptoms reported Female Genitourinary: No symptoms reported Musculoskeletal: Back pain, Muscle pain, Muscle stiffness Skin: Other Hematologic/Lymphatic: No symptoms reported Neurological/Psychological: No symptoms reported -: Yes All other systems reviewed and negative Physical Exam - Vital signs Vitals: Temp Pulse Resp BP Pulse Ox 98.5 F 87 16 147/88 H 98 01/24/19 09:05 01/24/19 09:05 01/24/19 09:05 01/24/19 09:05 01/24/19 09:05 Interpretation: Normal - General General appearance: Appears well, Alert - HEENT Head: Normocephalic, Atraumatic Eyes: Normal Pupils: PERRL - Respiratory Respiratory status: No respiratory distress Chest status: Nontender Breath sounds: Normal Chest palpation: Normal - Cardiovascular Rhythm: Regular Heart sounds: Normal auscultation Murmur: No - Abdominal Inspection: Normal Distension: No distension Bowel sounds: Normal Tenderness: Nontender Organomegaly: No organomegaly - Back Back: Normal, Tender - Large tender bruised swelling. No: Vertebra tenderness - Extremities General upper extremity: Normal inspection, Nontender, Normal color, Normal ROM, Normal temperature General lower extremity: Normal inspection, Nontender, Normal color, Normal ROM, Normal temperature, Normal weight bearing. No: Huan's sign - Neurological Neuro grossly intact: Yes Cognition: Normal Orientation: AAOx4 [place] Coma Scale Eye Opening: Spontaneous Elmo Coma Scale Verbal: Oriented [place] Coma Scale Motor: Obeys Commands Elmo Coma Scale Total: 15 Speech: Normal Motor strength normal: LUE, RUE, LLE, RLE Sensory: Normal - Psychological Associated symptoms: Normal affect, Normal mood - Skin Skin Temperature: Warm Skin Moisture: Dry Skin Color: Normal Course - Re-evaluation Re-evalutation: 01/24/19 21:28 After performing a Medical Screening Examination, I estimate there is LOW risk for EXPANDING OR RUPTURED ABDOMINAL AORTIC ANEURYSM, CAUDA EQUINA SYNDROME, EPIDURAL MASS LESION, or HERNIATED DISK CAUSING SEVERE SPINAL STENOSIS, thus I consider the discharge disposition reasonable. I have reevaluated this patient multiple times and no significant life threatening changes are noted. The patient and I have discussed the diagnosis and risks, and we agree with discharging home and close follow-up. We also discussed returning to the Emergency Department immediately if new or worsening symptoms occur with the understanding that symptoms and presentations can change. We have discussed the symptoms which are most concerning (e.g., saddle anesthesia, urinary or bowel incontinence or retention, changing or worsening pain) that necessitate immediate return. - Vital Signs Vital signs: Temp Pulse Resp BP Pulse Ox 98.2 F 60 18 145/85 H 100 01/24/19 12:16 01/24/19 12:16 01/24/19 12:16 01/24/19 12:16 01/24/19 12:16 - Laboratory Laboratory results interpreted by me: 01/24/19 09:50 Urine Glucose (UA) >=500 H Urine Ketones TRACE H Ur Leukocyte Esterase MODERATE H - Diagnostic Test Radiology reviewed: Image reviewed, Reports reviewed Discharge - Discharge Clinical Impression: Degenerative lumbar disc, Arthritis, low back UTI (urinary tract infection) Qualifiers: Urinary tract infection type: acute cystitis Hematuria presence: with hematuria Qualified Code(s): N30.01 - Acute cystitis with hematuria Condition: Stable Disposition: HOME, SELF-CARE Additional Instructions: URINARY TRACT INFECTION: Your evaluation indicates that you have a urinary tract infection. This is due to germs growing in the bladder. This is a common problem. This infection usually responds quickly to antibiotics. Your antibiotic should be taken exactly as prescribed. Drink plenty of fluids -- three to four quarts a day. Occasionally, a bladder anesthetic will be prescribed to help stop the feeling of urgency until the antibiotic has a chance to clear the infection. This may cause your urine to be dark orange. Certain urine infections require a culture. If the doctor obtained a culture, the results will be back in two days. You should call to see if a change in treatment is needed. A repeat urinalysis after you finish treatment is often recommended. The physician will let you know if further testing is required. Call the doctor if you develop fever, chills, flank pain, inability to urinate, or blood in the urine. VAGINAL YEAST INFECTION: You have evidence of a yeast infection -- called "danita." A vaginal yeast infection often causes itching and discharge. While not dangerous, it can be very unpleasant. A yeast infection often follows the use of powerful antibiotics. It is more likely to occur in diabetics. The treatment now is usually a single pill of Diflucan, but also an antifungal cream or suppository may be used for a few days. You do not need to avoid sexual intercourse. Recurrences are common. You can make a recurrence less likely by wearing cotton underwear and avoiding tight clothing. For mild recurrences, you can try buop-deg-lwwwoxx creams or suppositories that are made specifically for yeast. If the symptoms do not resolve, you should follow up for re-examination. Sometimes treatment of the sexual partner is necessary if infections are recurrent. Arthritis Your symptoms are due to arthritis. Arthritis is an inflammation of the joints. There are many types -- osteoarthritis (due to "wear and tear"), auto- immmune arthritis (such as rheumatoid, lupus, Domonique's, and others), and ross l-induced arthritis (such as gout and pseudogout). The physician's examination, combined with laboratory tests, will determine the cause of your arthritis. All types of arthritis are treated with antiinflammatory medications. Other medication may be required for special types of arthritis, or if your problem does not respond to the antiinflammatory medicine. Local warmth may be helpful. Move the involved joints through the full range of motion daily. Mild exercise is usually still possible for most persons with arthritis (ask your physician). Swimming provides good exercise without damaging the joints. Contact the physician if you are worsening in any way. LOW BACK PAIN: Three out of every four people will have an episode of disabling back pain during their lifetime. Most commonly the pain is due to straining of the muscles and ligaments in the low back. Usual treatment includes: (1) Rest on a firm surface. Avoid lying on your stomach. (2) Ice pack the painful area. After a few days, gentle heat may be used intermittently to relax the area, or ice packs can be continued. (3) Medication may be needed -- muscle relaxers and antiinflammatory medicines are commonly used. (4) As the back improves, exercises are prescribed to strengthen the back and abdominal muscles. Your doctor will advise you on the proper care for your back at each stage in your recovery. You may be better in a few days -- or healing may take several weeks. If new symptoms of a "herniated disc" (radiation of pain, numbness, or tingling down the back of the leg or weakness in the leg) occur, you should be re-examined. Further testing may be necessary. ICE PACKS: Apply ice packs frequently against the painful area. Many different sche dules are recommended, such as "20 minutes on, 20 minutes off" or "one hour ice, two hours rest." If you need to work, you may need to go longer between ice treatments. You should plan to have the area ice packed AT LEAST one fourth of the time. The ice should be applied over the wrap, tape, or splint, or over a layer of cloth -- not directly against the skin. Some ice bags have a built-in cloth and can be put directly on the skin. WARM PACKS: After approximately two days, apply gentle heat (such as a heating pad or hot water bottle) for about 20 to 30 minutes about every two hours -- at least four times daily. Warmth and elevation will help you make a more rapid recovery, and will ease the pain considerably. Do not use HOT heat, and never apply heat for longer than 30 minutes. The continuous heat can invisibly damage skin and muscles -- even when no burn is seen on the surface. Damaged muscles can make you MORE sore. NITROFURANTOIN (MACRODANTIN, MACROBID): You have received a prescription for nitrofurantoin (Macrodantin). This antibiotic is used for urinary tract infections. Women who are or nursing should notify the physician before taking this medicine. If you have ever had a problem caused by this medication in the past, be sure the physician is aware of it. Common side effects of this medicine include nausea, vomiting, or decreased appetite. Notify your physician if these side effects become severe. Immediately stop this medicine and call the physician if you develop cough, shortness of breath, chest pain, weakness, jaundice (yellow color of the skin and whites FLUCONAZOLE: Fluconazole (Diflucan) is an antifungal drug. It is useful for serious fungal infections, but is also excellent for oral or vaginal yeast infections. Diflucan interacts with some medicines. This is a concern if you are taking anticoagulants (such as Coumadin), phenytoin (Dilantin), cyclosporin, or oral hypoglycemics (such as tolbutamide, Orinase, glipizide, Glucotrol, glyburide, DiaBeta, Glynase, and Micronase). Be sure the doctor knows if you are taking one of these medicines. We don't know how Diflucan affects . If you are planning to become , discuss this with your doctor. Diflucan has few side effects. Minor side effects may include nausea, headache, or diarrhea. Call the doctor if you develop a skin rash, shortness of breath, or other new symptoms. Toradol Injection You have been given an injection of ketorolac tromethamine (Toradol). This is an excellent, safe drug for pain control. It also has potent antiinflammatory action. You should have significant pain relief within about one hour. Toradol is not addicting and is non-sedating. It does not interfere with driving or work. Call or return if you develop itching, hives, shortness of breath, or rash. Stretching Exercises for the Back The physician has recommended that you begin stretching exercises for your back. These are often used even while the back is painful. However, you should notify the physician if the activities seem to increase your pain. PELVIC TILT: Lie flat on your back with knees bent. Tighten your stomach and buttock muscles so it flattens your lower back against the floor. Hold 10 seconds. Repeat 10 times, twice daily. KNEE RAISE: Lying on the back with knees bent, raise one knee to your chest, then the other. Hold both knees against the chest 10 seconds, then lower one knee at a time. Repeat 10 times, twice daily. PARTIAL TRUNK RAISE: Lie face down, arms at your sides. Keeping your waist on the floor, use your arms raise your chest up. Support yourself on your elbows for 30 seconds. Repeat twice daily, increasing the time to two minutes as you recover. FOLLOW-UP CARE: If you have been referred to a physician for follow-up care, call the physicians office for an appointment as you were instructed or within the next two days. If you experience worsening or a significant change in your symptoms, notify the physician immediately or return to the Emergency Department at any time for re-evaluation. Prescriptions: Nitrofurantoin/Nitrofuran Mac [Macrobid 100 mg Capsule] 1 tab PO BID #20 capsule Forms: Elevated Blood Pressure, Smoking Cessation Education, Return to Work Referrals: [facility] [Primary Care Provider] - Follow up in 3-5 days
--- NOTE | 2019-01-24 09:49 | RADIOLOGY REPORT (SQ) ---
EXAM DESCRIPTION: L SPINE WHOLE COMPLETED DATE/TIME: 01/24/2019 9:35 am REASON FOR STUDY: Fall off porch landed on left lower back COMPARISON: 04/27/2018 NUMBER OF VIEWS: Five views including obliques. TECHNIQUE: AP, lateral, oblique, and sacral radiographic images acquired of the lumbar spine. LIMITATIONS: None. FINDINGS: MINERALIZATION: Normal. SEGMENTATION: Normal. No transitional anatomy. ALIGNMENT: There is loss of the normal lumbar lordosis. VERTEBRAE: Maintained height. No fracture or worrisome bone lesion. DISCS: Mild disc space narrowing at L2-L3, L3-L4 and L4-L5. Small anterior osteophytes at the same l evels. POSTERIOR ELEMENTS: Pedicles and facets are intact. No pars defect or posterior arch defects. HARDWARE: None in the spine. PARASPINAL SOFT TISSUES: Normal. PELVIS: Intact as visualized. No fractures or worrisome bone lesions. SI joints intact. OTHER: No other significant finding. IMPRESSION: Mild disc space narrowing as described. No acute findings. TECHNICAL DOCUMENTATION: JOB ID: [id number] [employer]- All Rights Reserved Reading location - IP/workstation name: [email or web address]
[2019-01-24 10:06] LABS: APPEARANCE,URINE SLIGHTLY-CLOUDY; BILIRUBIN,URINE NEGATIVE (NEGATIVE); COLOR,URINE YELLOW; GLUCOSE, URINE >=500 mg/dL (NEGATIVE); KETONES,URINE TRACE mg/dL (NEGATIVE); LEUKOCYTE ESTERASE,URINE MODERATE (NEGATIVE); NITRITE,URINE NEGATIVE (NEGATIVE); PROTEIN,URINE NEGATIVE (NEGATIVE); UROBILINOGEN,URINE NEGATIVE mg/dL (<2.0)
[2019-01-24] MEDS ORDERED: FLUCONAZOLE 100 MG TABLET PO ONE (10:42)
[2019-01-24] MEDS ORDERED: NITROFURANTOIN MONOHYD/M-CRYST 100 MG CAPSULE PO ONE (10:43)
--- NOTE | 2019-01-24 12:12 | RADIOLOGY REPORT (SQ) ---
EXAM DESCRIPTION: U/S RETROPERITON (RENAL/AORTA) COMPLETED DATE/TIME: 01/24/2019 10:45 am REASON FOR STUDY: Fall off porch landed on left lower back COMPARISON: None. TECHNIQUE: Dynamic and static grayscale images acquired of the kidneys and bladder and recorded on P ACS. Additional selected color Doppler and spectral images recorded. LIMITATIONS: None. FINDINGS: RIGHT KIDNEY: Normal size. Normal echogenicity. No solid or suspicious masses. No h ydronephrosis. No calcifications. LEFT KIDNEY: Normal size. Normal echogenicity. No solid or suspicious masses. No hydronephrosi s. No calcifications. BLADDER: No masses. OTHER FINDINGS: No other significant finding. IMPRESSION: NORMAL RENAL AND BLADDER ULTRASOUND. TECHNICAL DOCUMENTATION: JOB ID: [id number] [employer]- All Rights Reserved Reading location - IP/workstation name: [email or web address]
[2019-01-24 12:16] VITALS: BP 145/85
== END 2019-01-24 12:19 | disposition home or self-care (01) ==
LOC: ER 09:00
DX: N30.01 Acute cystitis with hematuria (principal); M47.9 Spondylosis, unspecified; M51.36 Other intervertebral disc degeneration, lumbar region; W17.89XA Other fall from one level to another, initial encounter; Y92.009 Unspecified place in unspecified non-institutional (private) residence as the place of occurrence of the external cause; F17.210 Nicotine dependence, cigarettes, uncomplicated; E11.9 Type 2 diabetes mellitus without complications
CPT/HCPCS: 99284; 96374; 81025; 81001; 72110; 76770; J1885; J8499